=== PATIENT | female | born 1995 | race Caucasian/White ===

== ENCOUNTER 2016-06-29 18:51 | Emergency (ER) | payer MEDICAID | END 2016-06-29 22:30 | disposition left against medical advice (07) | LOC: ER 18:51 | DX: Z53.9 Procedure and treatment not carried out, unspecified reason (principal); K08.89 Other specified disorders of teeth and supporting structures ==

== ENCOUNTER 2016-12-03 15:10 | Emergency (ER) | payer MEDICAID ==
--- NOTE | 2016-12-03 16:04 | ER Document Report ---
ED Medical Screen (RME) - General Chief Complaint: Abdominal Pain Stated Complaint: STOMACH PAIN Time Seen by Provider: 12/03/16 16:01 Mode of Arrival: Ambulatory Information source: Patient Notes: 20 yo female c/o late menses (6-14) and Right pelvic pain. No home test. 2015. No vaginal discharge or dysuria. Nauseated and vomited at work the other night. Hx HPV, ovarian cyst, endometriosis, no pap smear ever. No fever. Hx misti tonsillectomy. Nl bm this am. TRAVEL OUTSIDE OF THE [place] IN LAST 30 DAYS: No - Related Data Allergies/Adverse Reactions: amoxicillin [Amoxicillin] Allergy (Verified 12/03/16 16:01) midazolam HCl [From Versed] Allergy (Verified 12/03/16 16:01) Past Medical History - Past Medical History Cardiac Medical History: Denies: Hx Coronary Artery Disease, Hx Heart Attack, Hx Hypertension Pulmonary Medical History: Reports: Hx Asthma, Hx Pneumonia - 07/31 - CXR Denies: Hx Bronchitis, Hx COPD Neurological Medical History: Reports: Hx Seizures - 03/01 - topamax . Denies: Hx Cerebrovascular Accident Renal/ Medical History: Denies: Hx Peritoneal Dialysis GI Medical History: Reports: Hx Gastroesophageal Reflux Disease, Hx Hiatal Hernia Musculoskeltal Medical History: Denies Hx Arthritis, Reports Hx Musculoskeletal Trauma Psychiatric Medical History: Reports: Hx Anxiety - panic attacks, Hx Bipolar Disorder, Hx Depression, Hx Post Traumatic Stress Disorder Past Surgical History: Reports: Hx Adenoidectomy, Hx Cholecystectomy, Hx Tonsillectomy - and adenoids. Denies: Hx Hysterectomy - Immunizations Hx Diphtheria, Pertussis, Tetanus Vaccination: Yes Physical Exam - Vital signs Vitals: Temp Pulse Resp BP Pulse Ox 98.3 F 107 H 18 105/65 96 12/03/16 15:33 12/03/16 15:33 12/03/16 15:33 12/03/16 15:33 12/03/16 15:33 Course - Vital Signs Vital signs: Temp Pulse Resp BP Pulse Ox 98.3 F 107 H 18 105/65 96 12/03/16 15:33 12/03/16 15:33 12/03/16 15:33 12/03/16 15:33 12/03/16 15:33
[2016-12-03 16:33] LABS: ABSOLUTE EOSINOPHILS # (AUTO) 0.2 10^3/uL (0.0-0.6); ABSOLUTE LYMPHOCYTES (AUTO) 2.2 10^3/uL (0.5-4.7); ABSOLUTE MONOCYTES (AUTO) 0.6 10^3/uL (0.1-1.4); ABSOLUTE NEUT (AUTO) 4.2 10^3/uL (1.7-8.2); BASOPHILS % (AUTO) 0.6 % (0-2); EOSINOPHILS % (AUTO) 2.2 % (0-6); HEMATOCRIT 44.4 % (36.0-47.0); HEMOGLOBIN 14.7 g/dL (12.0-15.5); HGB HCT DIFFERENCE -0.3; LYMPHOCYTES % (AUTO) 30.8 % (13-45); MEAN CORPUSCULAR HEMOGLOBIN 29.3 pg (27.0-33.4); MEAN CORPUSCULAR HGB CONC 33.2 g/dL (32.0-36.0); MEAN CORPUSCULAR VOLUME 88 fl (80-97); MONOCYTES % (AUTO) 8.7 % (3-13); RED BLOOD COUNT 5.03 10^6/uL (3.72-5.28); RED CELL DISTRIBUTION WIDTH 14.3 % (11.5-14.0); SEGMENTED NEUTROPHILS % (AUTO) 57.7 % (42-78); WHITE BLOOD COUNT 7.2 10^3/uL (4.0-10.5)
[2016-12-03 16:50] LABS: ALANINE AMINOTRANSFERASE 28 U/L (5-35); ALBUMIN 4.7 g/dL (3.7-5.6); ALKALINE PHOSPHATASE 52 U/L (50-135); ANION GAP 11 (5-19); ASPARTATE AMINO TRANSFERASE 19 U/L (5-30); BILIRUBIN,DIRECT 0.3 mg/dL (0.0-0.4); BILIRUBIN,TOTAL 0.6 mg/dL (0.2-1.3); BLOOD UREA NITROGEN 9 mg/dL (7-20); CALCIUM 9.7 mg/dL (8.4-10.2); CARBON DIOXIDE 25 mmol/L (22-30); CHLORIDE 105 mmol/L (98-107); CREATININE RESULT 0.69 mg/dL (0.52-1.25); GLUCOSE 82 mg/dL (75-110); SODIUM 140.9 mmol/L (137-145); TOTAL PROTEIN 7.3 g/dL (6.3-8.2)
[2016-12-03 16:54] LABS: APPEARANCE,URINE SLIGHTLY-CLOUDY; BILIRUBIN,URINE NEGATIVE (NEGATIVE); GLUCOSE, URINE NEGATIVE (NEGATIVE); KETONES,URINE NEGATIVE (NEGATIVE); LEUKOCYTE ESTERASE,URINE NEGATIVE (NEGATIVE); NITRITE,URINE NEGATIVE (NEGATIVE); PROTEIN,URINE NEGATIVE (NEGATIVE); URINE SPECIFIC GRAVITY 1.028; UROBILINOGEN,URINE NEGATIVE mg/dL (<2.0)
--- NOTE | 2016-12-03 19:06 | ER Document Report ---
ED General - General Chief Complaint: Abdominal Pain Stated Complaint: STOMACH PAIN Time Seen by Provider: 12/03/16 16:01 Mode of Arrival: Ambulatory Notes: Patient is a 20-year-old female with a history of recurrent abdominal pain and prior ovarian cysts who presents with several days of intermittent stabbing, sharp, moderate to severe pain to the right lower abdomen. Nothing improves or worsens her symptoms. States she has had a history of similar symptoms in the past but never to this degree of intensity. She has not seen her primary care doctor regarding today's concerns. She denies any vaginal bleeding, vaginal discharge or dysuria. No vomiting or constitutional symptoms. TRAVEL OUTSIDE OF THE [place] IN LAST 30 DAYS: No - Related Data Allergies/Adverse Reactions: amoxicillin [Amoxicillin] Allergy (Verified 12/03/16 16:01) midazolam HCl [From Versed] Allergy (Verified 12/03/16 16:01) Past Medical History - General Information source: Patient - Social History Smoking Status: Never Smoker Frequency of alcohol use: None Drug Abuse: None Lives with: Family Family History: Arthritis, DM, Hyperlipidemia Patient has suicidal ideation: No Patient has homicidal ideation: No - Past Medical History Cardiac Medical History: Denies: Hx Coronary Artery Disease, Hx Heart Attack, Hx Hypertension Pulmonary Medical History: Reports: Hx Asthma, Hx Pneumonia - 07/31 - CXR Denies: Hx Bronchitis, Hx COPD Neurological Medical History: Reports: Hx Seizures - 03/01 - topamax . Denies: Hx Cerebrovascular Accident Renal/ Medical History: Denies: Hx Peritoneal Dialysis GI Medical History: Reports: Hx Gastroesophageal Reflux Disease, Hx Hiatal Hernia Musculoskeltal Medical History: Denies Hx Arthritis, Reports Hx Musculoskeletal Trauma Psychiatric Medical History: Reports: Hx Anxiety - panic attacks, Hx Bipolar Disorder, Hx Depression, Hx Post Traumatic Stress Disorder Past Surgical History: Reports: Hx Adenoidectomy, Hx Cholecystectomy, Hx Tonsillectomy - and adenoids. Denies: Hx Hysterectomy - Immunizations Hx Diphtheria, Pertussis, Tetanus Vaccination: Yes Review of Systems - Review of Systems Notes: Constitutional: Negative for fever. HENT: Negative for sore throat. Eyes: Negative for visual changes. Cardiovascular: Negative for chest pain. Respiratory: Negative for shortness of breath. Gastrointestinal: Positive for right lower abdominal pain Genitourinary: Negative for dysuria. Musculoskeletal: Negative for back pain. Skin: Negative for rash. Neurological: Negative for headaches, weakness or numbness. 10 point ROS negative except as marked above and in HPI. Physical Exam - Vital signs Vitals: Temp Pulse Resp BP Pulse Ox 98.3 F 107 H 18 105/65 96 12/03/16 15:33 12/03/16 15:33 12/03/16 15:33 12/03/16 15:33 12/03/16 15:33 Interpretation: Tachycardic Notes: PHYSICAL EXAMINATION: GENERAL: Well-appearing, well-nourished and in no acute distress. HEAD: Atraumatic, normocephalic. EYES: Pupils equal round and reactive to light, extraocular movements intact, sclera anicteric, conjunctiva are normal. ENT: nares patent, oropharynx clear without exudates. Moist mucous membranes. NECK: Normal range of motion, supple without lymphadenopathy LUNGS: Breath sounds clear to auscultation bilaterally and equal. No wheezes rales or rhonchi. HEART: Regular rate and rhythm without murmurs ABDOMEN: Soft, right adnexal tenderness, no right lower quadrant tenderness. No rebound or guarding. EXTREMITIES: Normal range of motion, no pitting or edema. No cyanosis. NEUROLOGICAL: No focal neurological deficits. Moves all extremities spontaneously and on command. PSYCH: Normal mood, normal affect. SKIN: Warm, Dry, normal turgor, no rashes or lesions noted. Course - Re-evaluation Re-evalutation: 12/03/16 19:02 Patient presents with chronic intermittent abdominal pain that has been worse over the last several days in the right adnexa. Patient has mild tenderness on palpation of the right adnexa but absolutely no tenderness to the right lower quadrant. Her pain is an intermittent, stabbing pain in her clinical history is not at all consistent with an acute appendicitis nor are her labs, vitals or examination. Patient has had similar pains in the past related to an ovarian cyst and this seems to be the most probable cause pain today. I do not suspect an acute ovarian torsion given the lack of constant pain or any significant pain at time of my exam, and patient denies any vaginal discharge, fever, constitutional symptoms and has a normal white blood cell count making a tubo- ovarian abscess highly improbable. She has declined a transvaginal ultrasound which I think is appropriate given my low clinical suspicion for any diagnoses that would be altered by the use of this imaging modality. She is not . I have encouraged conservative management using NSAIDs and close outpatient follow-up. At this time will discharge with return precautions and follow-up recommendations. Verbal discharge instructions given a the bedside and opportunity for questions given. Medication warnings reviewed. Patient is in agreement with this plan and has verbalized understanding of return precautions and the need for primary care follow-up in the next 24-72 hours. - Vital Signs Vital signs: Temp Pulse Resp BP Pulse Ox 98.3 F 83 18 102/65 98 12/03/16 15:33 12/03/16 19:28 12/03/16 19:28 12/03/16 19:28 12/03/16 19:28 - Laboratory Result Diagrams: 12/03/16 16:20 12/03/16 16:20 Laboratory results interpreted by me: 12/03/16 16:20 RDW 14.3 H Discharge - Discharge Clinical Impression: Right lower quadrant abdominal pain Condition: Good Disposition: HOME, SELF-CARE Additional Instructions: You have been seen in the Emergency Department (ED) for abdominal pain. Your evaluation did not identify a clear cause of your symptoms but was generally reassuring. For your pain: Take ibuprofen 600 mg and acetaminophen 1000 mg every 6 hours together as needed for pain. Please follow up with your doctor as soon as possible regarding today's emergent visit and the symptoms that are bothering you. Return to the ED if your abdominal pain worsens or fails to improve, you develop bloody vomiting, bloody diarrhea, you are unable to tolerate fluids due to vomiting, fever greater than 101, or other symptoms that concern you. Referrals: EMERY LEONARDO MD [Primary Care Provider] - Follow up as needed
[2016-12-03] MEDS ORDERED: KETOROLAC TROMETHAMINE INJ/PF 30 MG/1 ML SDV IV ONE (19:07)
[2016-12-03 19:29] VITALS: BP 102/65
== END 2016-12-03 19:27 | disposition home or self-care (01) ==
LOC: ER 15:10
DX: R10.31 Right lower quadrant pain (principal)
CPT/HCPCS: 99284; 96374; 36415; 87086; 84702; 85025; 80053; 81001; J1885

== ENCOUNTER 2017-01-06 23:42 | Emergency (ER) | payer MEDICAID ==
[2017-01-07 00:15] LABS: ABSOLUTE EOSINOPHILS # (AUTO) 0.1 10^3/uL (0.0-0.6); ABSOLUTE LYMPHOCYTES (AUTO) 2.1 10^3/uL (0.5-4.7); ABSOLUTE MONOCYTES (AUTO) 0.4 10^3/uL (0.1-1.4); ABSOLUTE NEUT (AUTO) 3.2 10^3/uL (1.7-8.2); BASOPHILS % (AUTO) 0.8 % (0-2); EOSINOPHILS % (AUTO) 2.4 % (0-6); HEMATOCRIT 46.9 % (36.0-47.0); HEMOGLOBIN 15.7 g/dL (12.0-15.5); HGB HCT DIFFERENCE 0.2; LYMPHOCYTES % (AUTO) 36.1 % (13-45); MEAN CORPUSCULAR HEMOGLOBIN 30.3 pg (27.0-33.4); MEAN CORPUSCULAR HGB CONC 33.5 g/dL (32.0-36.0); MEAN CORPUSCULAR VOLUME 91 fl (80-97); MONOCYTES % (AUTO) 6.9 % (3-13); RED BLOOD COUNT 5.17 10^6/uL (3.72-5.28); RED CELL DISTRIBUTION WIDTH 15.6 % (11.5-14.0); SEGMENTED NEUTROPHILS % (AUTO) 53.8 % (42-78); WHITE BLOOD COUNT 5.9 10^3/uL (4.0-10.5)
[2017-01-07 00:30] LABS: APPEARANCE,URINE CLOUDY; BILIRUBIN,URINE NEGATIVE (NEGATIVE); GLUCOSE, URINE NEGATIVE (NEGATIVE); KETONES,URINE NEGATIVE (NEGATIVE); LEUKOCYTE ESTERASE,URINE NEGATIVE (NEGATIVE); NITRITE,URINE NEGATIVE (NEGATIVE); PROTEIN,URINE NEGATIVE (NEGATIVE); URINE SPECIFIC GRAVITY 1.011; UROBILINOGEN,URINE NEGATIVE mg/dL (<2.0)
--- NOTE | 2017-01-07 00:43 | ER Document Report ---
ED Psych Disorder / Suicide - General Chief Complaint: Suicidal Ideation Stated Complaint: PSYCH PROBLEM Time Seen by Provider: 01/07/17 00:28 TRAVEL OUTSIDE OF THE [place] IN LAST 30 DAYS: No - HPI Notes: 21-year-old female with prior history of anxiety and depression presents with reports of suicidal thought with a plan per [facility] paperwork. Also they report she has not been eating for 4 days and has had homicidal thoughts. Patient states she just contacted [facility] to talk with them as she has done in the past. She is denying suicidal thoughts. She states she has a job interview in the morning and is wanting to go to that appointment. She denies any physical complaints. Denies cough cold symptoms fever. She does smoke chronically and occasionally uses alcohol but denies using alcohol tonight. Only uses medications prescribed for her. She does admit to some hyperventilation type symptoms shortly before coming here. Denies any attempt at self-harm. - Related Data Allergies/Adverse Reactions: amoxicillin [Amoxicillin] Allergy (Verified 01/06/17 23:50) midazolam HCl [From Versed] Allergy (Verified 01/06/17 23:50) Past Medical History - Social History Smoking Status: Current Every Day Smoker Family History: Arthritis, DM, Hyperlipidemia Patient has suicidal ideation: Yes Patient has homicidal ideation: Yes - Past Medical History Cardiac Medical History: Denies: Hx Coronary Artery Disease, Hx Heart Attack, Hx Hypertension Pulmonary Medical History: Reports: Hx Asthma, Hx Pneumonia - 07/31 - CXR Denies: Hx Bronchitis, Hx COPD Neurological Medical History: Reports: Hx Seizures - 03/01 - topamax . Denies: Hx Cerebrovascular Accident Renal/ Medical History: Denies: Hx Peritoneal Dialysis GI Medical History: Reports: Hx Gastroesophageal Reflux Disease, Hx Hiatal Hernia Musculoskeltal Medical History: Denies Hx Arthritis, Reports Hx Musculoskeletal Trauma Psychiatric Medical History: Reports: Hx Anxiety - panic attacks, Hx Bipolar Disorder, Hx Depression, Hx Post Traumatic Stress Disorder Past Surgical History: Reports: Hx Adenoidectomy, Hx Cholecystectomy, Hx Tonsillectomy - and adenoids. Denies: Hx Hysterectomy - Immunizations Hx Diphtheria, Pertussis, Tetanus Vaccination: Yes Review of Systems - Review of Systems -: Yes All other systems reviewed and negative Physical Exam - Vital signs Vitals: Temp Pulse Resp BP Pulse Ox 98.4 F 79 20 125/77 99 01/06/17 23:50 01/06/17 23:50 01/06/17 23:50 01/06/17 23:50 01/06/17 23:50 Interpretation: Normal - Notes Notes: GENERAL: VS as per nursing doc. Well-appearing, thin female who is tearful HEAD: Atraumatic, normocephalic EYES: Pupils equal round and reactive to light, extraocular movements intact, sclera anicteric, no conjunctival injection or discharge. ENT: Nares patent, oropharynx clear without exudates, moist mucous membranes. NECK: Normal range of motion, supple without lymphadenopathy. LUNGS: Breath sounds clear to auscultation bilaterally but are coarse and equal. No wheezes rales or rhonchi. HEART: Regular rate and rhythm without murmurs. Peripheral pulses equal. ABDOMEN: Soft, non-tender. BACK: Normal to inspection EXTREMITIES: Normal appearance without edema. NEUROLOGICAL: Cranial nerves grossly intact. Normal speech. Normal sensory and motor exams. No gross cerebellar abnormalities. PSYCH: Oriented 3. Anxious, directable. No evidence of hallucinations or delusions. No reported suicidal or homicidal ideation though [facility] management notes otherwise. Normal thought content. Speech is slightly pressured. SKIN: Warm, dry. No lacerations. Course - Re-evaluation Re-evalutation: 01/07/17 00:42 It appears the patient is having some significant stressors of unclear origin. She will require further psychiatric evaluation with her reports of suicidal thought with plan as well as homicidal ideation to [facility]. She has been inconsistent with me regarding what she told [facility]. 01/07/17 02:51 - Vital Signs Vital signs: Temp Pulse Resp BP Pulse Ox 98.4 F 79 20 125/77 99 01/06/17 23:50 01/06/17 23:50 01/06/17 23:50 01/06/17 23:50 01/06/17 23:50 - Laboratory Result Diagrams: 01/06/17 23:59 01/06/17 23:59 Laboratory results interpreted by me: 01/06/17 01/06/17 23:59 23:59 Hgb 15.7 H RDW 15.6 H Salicylates < 1.0 L Acetaminophen < 10 L
[2017-01-07 00:44] LABS: ALANINE AMINOTRANSFERASE 25 U/L (9-52); ALCOHOL < 10 mg/dL (NONE DETECTED); ALKALINE PHOSPHATASE 50 U/L (38-126); ANION GAP 11 (5-19); ASPARTATE AMINO TRANSFERASE 18 U/L (14-36); BILIRUBIN,DIRECT 0.4 mg/dL (0.0-0.4); BILIRUBIN,TOTAL 0.5 mg/dL (0.2-1.3); BLOOD UREA NITROGEN 8 mg/dL (7-20); CALCIUM 10.2 mg/dL (8.4-10.2); CARBON DIOXIDE 26 mmol/L (22-30); CHLORIDE 103 mmol/L (98-107); CREATININE RESULT 0.61 mg/dL (0.52-1.25); GLUCOSE 87 mg/dL (75-110); MAGNESIUM 2.1 mg/dL (1.6-2.3); SODIUM 139.6 mmol/L (137-145); TOTAL PROTEIN 7.4 g/dL (6.3-8.2)
[2017-01-07 00:51] LABS: URINE BARBITURATES SCREEN NEGATIVE; URINE METHADONE SCREEN NEGATIVE; URINE OPIATES LOW NEGATIVE; URINE PHENCYCLIDINE SCREEN NEGATIVE
[2017-01-07] MEDS ORDERED: LORAZEPAM 1 MG TABLET PO PRN (03:43)
--- NOTE | 2017-01-07 09:10 | ER Document Report ---
Doctor's Note Notes: 01/07/17 09:10 Patient is resting comfortably in the bed talking with her significant other. She is cheerful and pleasant. She denies any complaints or concerns at this time. She is currently awaiting disposition.
--- NOTE | 2017-01-07 10:24 | EKG REPORT ---
SEVERITY:- NORMAL ECG - SINUS RHYTHM : Confirmed by: Mary Carmen Dennis 07-Jan-2017 10:22:52
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
[2017-01-07 11:11] VITALS: BP 96/54
== END 2017-01-07 11:15 | disposition home or self-care (01) ==
LOC: ER 23:42
DX: F31.9 Bipolar disorder, unspecified (principal); F17.200 Nicotine dependence, unspecified, uncomplicated; Z88.0 Allergy status to penicillin; Z88.4 Allergy status to anesthetic agent
CPT/HCPCS: 36415; 80053; 80307; 81001; 83735; 84703; 85025; 93005; 93010; 99285

== ENCOUNTER 2017-04-26 01:42 | Emergency (ER) | payer MEDICAID, OTHER ==
[2017-04-26] MEDS ORDERED: ONDANSETRON HCL INJ/PF 4 MG/2 ML SDV IV ONE (02:23)
[2017-04-26] MEDS ORDERED: FAMOTIDINE INJ/PF 20 MG/2 ML SDV IV ONE (02:23)
[2017-04-26] MEDS ORDERED: NORMAL SALINE 1000 ML 1,000 ML IV ONE (02:23)
--- NOTE | 2017-04-26 02:29 | ER Document Report ---
ED General - General Chief Complaint: Nausea/Vomiting/Diarrhea Stated Complaint: VOMITING Time Seen by Provider: 04/26/17 02:09 Mode of Arrival: Ambulatory Information source: Patient, Friend TRAVEL OUTSIDE OF THE [place] IN LAST 30 DAYS: No - HPI Notes: Patient is a 21-year-old who is currently 7 weeks from last menstrual period presents to the emergency department with report 3 week history of progressive right lower quadrant pain and now has nausea and vomiting without hematemesis. The patient also reports 2 loose bowel movements earlier today without any obvious blood. The patient denies any vaginal bleeding or discharge. The patient reports no back pain. She reports no fever or chills. She did not have this amount of nausea and vomiting with a previous . Patient reports no exposures to anyone else who is been sick. The patient does admit to feeling somewhat lightheaded when she stands up. The patient has not yet had a pelvic ultrasound regarding this . - Related Data Allergies/Adverse Reactions: amoxicillin [Amoxicillin] Allergy (Verified 04/26/17 01:52) midazolam HCl [From Versed] Allergy (Verified 04/26/17 01:52) Past Medical History - General Information source: Patient - Social History Smoking Status: Current Every Day Smoker Frequency of alcohol use: None Drug Abuse: None Lives with: Alone Family History: Arthritis, DM, Hyperlipidemia Patient has suicidal ideation: No Patient has homicidal ideation: No - Past Medical History Cardiac Medical History: Denies: Hx Coronary Artery Disease, Hx Heart Attack, Hx Hypertension Pulmonary Medical History: Reports: Hx Asthma, Hx Pneumonia - 07/31 - CXR Denies: Hx Bronchitis, Hx COPD Neurological Medical History: Reports: Hx Seizures - 03/01 - topamax . Denies: Hx Cerebrovascular Accident Renal/ Medical History: Denies: Hx Peritoneal Dialysis GI Medical History: Reports: Hx Gastroesophageal Reflux Disease, Hx Hiatal Hernia Musculoskeltal Medical History: Denies Hx Arthritis, Reports Hx Musculoskeletal Trauma Psychiatric Medical History: Reports: Hx Anxiety - panic attacks, Hx Bipolar Disorder, Hx Depression, Hx Post Traumatic Stress Disorder Past Surgical History: Reports: Hx Adenoidectomy, Hx Cholecystectomy, Hx Tonsillectomy - and adenoids. Denies: Hx Hysterectomy - Immunizations Hx Diphtheria, Pertussis, Tetanus Vaccination: Yes Review of Systems - Review of Systems Notes: REVIEW OF SYSTEMS: CONSTITUTIONAL : Denies fever, chills, or sweats. EENT: Denies eye, ear, throat, or mouth pain or symptoms. Denies nasal or sinus congestion or discharge. Denies throat, tongue, or mouth swelling or difficulty swallowing. CARDIOVASCULAR: Denies chest pain. Denies palpitations or racing or irregular heart beat. Denies ankle edema. RESPIRATORY: Denies cough, cold, or chest congestion. Denies shortness of breath, difficulty breathing, or wheezing. GASTROINTESTINAL: Denies abdominal pain or distention. Denies blood in vomitus , stools, or per rectum. Denies black, tarry stools. Denies constipation. GENITOURINARY: Denies difficulty urinating, painful urination, burning, frequency, blood in urine, or discharge. FEMALE GENITOURINARY: Denies vaginal bleeding, heavy or abnormal periods, irregular periods. Denies vaginal discharge or odor. MUSCULOSKELETAL: Denies back or neck pain or stiffness. Denies joint pain or swelling. SKIN: Denies rash, lesions or sores. HEMATOLOGIC : Denies easy bruising or bleeding. LYMPHATIC: Denies swollen, enlarged glands. NEUROLOGICAL: Denies confusion or altered mental status. Denies passing out or loss of consciousness. Denies dizziness or lightheadedness. Denies headache. Denies weakness or paralysis or loss of use of either side. Denies problems with gait or speech. Denies sensory loss, numbness, or tingling. Denies seizures. PSYCHIATRIC: Denies anxiety or stress. Denies depression, suicidal ideation, or homicidal ideation. ALL OTHER SYSTEMS REVIEWED AND NEGATIVE. Dictation was performed using [employer] voice recognition software Physical Exam - Vital signs Vitals: Temp Pulse Resp BP Pulse Ox 98.5 F 83 16 109/66 97 04/26/17 01:52 04/26/17 01:52 04/26/17 01:52 04/26/17 01:52 04/26/17 01:52 - Notes Notes: PHYSICAL EXAMINATION: GENERAL: Moderate discomfort with nausea. HEAD: Atraumatic, normocephalic. EYES: Pupils equal round and reactive to light, extraocular movements intact, conjunctiva are normal. ENT: Nares patent, oropharynx clear without exudates. Dry thin mucous membranes. NECK: Normal range of motion, supple without lymphadenopathy LUNGS: Breath sounds clear to auscultation bilaterally and equal. No wheezes rales or rhonchi. HEART: Regular rate and rhythm without murmurs ABDOMEN: Soft, thin, nondistended abdomen. No guarding, no rebound. No masses appreciated. Tender through the right lower quadrant region. No rebound or guarding. Female : deferred Musculoskeletal: Normal range of motion, no pitting or edema. No cyanosis. No CVA tenderness. NEUROLOGICAL: Cranial nerves grossly intact. Normal speech, normal gait. Normal sensory, motor exams PSYCH: Normal mood, normal affect. SKIN: Warm, Dry, normal turgor, no rashes or lesions noted. Course - Re-evaluation Re-evalutation: 04/26/17 02:28 Patient was given normal saline bolus and Zofran and Pepcid. Patient was counseled at length about the need to quit smoking regarding the . 04/26/17 03:20 Patient had improvement in her nausea after Zofran and Pepcid. - Vital Signs Vital signs: Temp Pulse Resp BP Pulse Ox 98.5 F 83 16 109/66 97 04/26/17 01:52 04/26/17 01:52 04/26/17 01:52 04/26/17 01:52 04/26/17 01:52 - Laboratory Result Diagrams: 04/26/17 03:08 04/26/17 03:08 Laboratory results interpreted by me: 04/26/17 04/26/17 03:08 03:08 RDW 14.5 H Urine Protein 30 H Urine Ketones 80 H Urine Urobilinogen 2.0 H Urine Ascorbic Acid 40 H Discharge - Discharge Clinical Impression: Vomiting and diarrhea, Tobacco abuse, Abdominal pain affecting , Hyperemesis gravidarum, Dehydration Instructions: Stop Smoking ([facility]), Hyperemesis Gravidarum ([facility]) Prescriptions: Ondansetron [Zofran Odt 4 mg Tablet] 1 tab PO Q8HP PRN #15 tab.rapdis PRN Reason: For Nausea/Vomiting Famotidine [Pepcid 20 mg Tablet] 20 mg PO BID #60 tablet
[2017-04-26 03:25] LABS: APPEARANCE,URINE SLIGHTLY HAZY; BILIRUBIN,URINE NEGATIVE (NEGATIVE); GLUCOSE, URINE NEGATIVE (NEGATIVE); KETONES,URINE 80 mg/dL (NEGATIVE); LEUKOCYTE ESTERASE,URINE NEGATIVE (NEGATIVE); NITRITE,URINE NEGATIVE (NEGATIVE); PROTEIN,URINE 30 mg/dL (NEGATIVE); URINE SPECIFIC GRAVITY 1.029
[2017-04-26 03:27] LABS: ABSOLUTE EOSINOPHILS # (AUTO) 0.1 10^3/uL (0.0-0.6); ABSOLUTE LYMPHOCYTES (AUTO) 1.9 10^3/uL (0.5-4.7); ABSOLUTE MONOCYTES (AUTO) 0.5 10^3/uL (0.1-1.4); ABSOLUTE NEUT (AUTO) 4.6 10^3/uL (1.7-8.2); BASOPHILS % (AUTO) 0.3 % (0-2); EOSINOPHILS % (AUTO) 1.4 % (0-6); HEMATOCRIT 40.9 % (36.0-47.0); HEMOGLOBIN 14.2 g/dL (12.0-15.5); HGB HCT DIFFERENCE 1.7; MEAN CORPUSCULAR HEMOGLOBIN 31.1 pg (27.0-33.4); MEAN CORPUSCULAR HGB CONC 34.8 g/dL (32.0-36.0); MEAN CORPUSCULAR VOLUME 89 fl (80-97); MONOCYTES % (AUTO) 7.3 % (3-13); RED BLOOD COUNT 4.58 10^6/uL (3.72-5.28); RED CELL DISTRIBUTION WIDTH 14.5 % (11.5-14.0); WHITE BLOOD COUNT 7.1 10^3/uL (4.0-10.5)
[2017-04-26 03:44] LABS: ALANINE AMINOTRANSFERASE 32 U/L (9-52); ALBUMIN 4.5 g/dL (3.5-5.0); ALKALINE PHOSPHATASE 55 U/L (38-126); ANION GAP 18 (5-19); ASPARTATE AMINO TRANSFERASE 22 U/L (14-36); BILIRUBIN,DIRECT 0.3 mg/dL (0.0-0.4); BILIRUBIN,TOTAL 0.7 mg/dL (0.2-1.3); BLOOD UREA NITROGEN 6 mg/dL (7-20); CALCIUM 9.6 mg/dL (8.4-10.2); CARBON DIOXIDE 17 mmol/L (22-30); CHLORIDE 104 mmol/L (98-107); CREATININE RESULT 0.36 mg/dL (0.52-1.25); GLUCOSE 79 mg/dL (75-110); POTASSIUM 3.7 mmol/L (3.6-5.0); SODIUM 139.2 mmol/L (137-145); TOTAL PROTEIN 6.9 g/dL (6.3-8.2)
[2017-04-26] MEDS ORDERED: POTASSI CL 20 MEQ/D5LR 1L 20 MEQ/1,000 ML RTUINJ IV ONE (03:50)
--- NOTE | 2017-04-26 06:00 | ER Document Report ---
Doctor's Note Notes: 04/26/17 05:59 Patient's ultrasound shows an IUP with a heart rate in the 170s. Measures 9 weeks 1 day. Did reevaluate the patient she says that she feels very well. She is receiving the D5 IV fluids it was ordered by Dr. Elliott. He is no longer nauseous and is on pain. Informed the nurse and when she receives 500 mL's of the D5 fluids that she will be safe to be discharged home. Patient says he feels very good and agrees with plan for discharge home. I encouraged her return to ER immediately if she has intractable vomiting, fevers, or worsening abdominal pain or vaginal bleeding. Patient has discharge instructions and prescriptions already written by Dr. Elliott.
--- NOTE | 2017-04-26 06:14 | RADIOLOGY REPORT (SQ) ---
EXAM DESCRIPTION: U/S 1TRIMESTER/1GEST W/DOPPLER CLINICAL HISTORY: 21 years, Female, with RLQ pain COMPARISON: None. TECHNIQUE: Transvaginal. LIMITATIONS: None. FINDINGS: Intrauterine living fetus measures 2.5 cm in crown-rump length corresponding with a gestational age of nine weeks and one day with TALHA of 11/28/2017. Cardiac activity is 178 bpm. 3.7 cm right ovary, 4.2 cm left ovary, 2.7 cm likely left corpus luteal cyst, 3.4 cm cervical length appear otherwise unremarkable. No significant free fluid. IMPRESSION: Sonographically viable intrauterine 9w 1d gestation. 2010 [employer]- All Rights Reserved
[2017-04-26 06:58] VITALS: BP 122/75
== END 2017-04-26 06:57 | disposition home or self-care (01) ==
LOC: ER 01:42
DX: O26.91 Pregnancy related conditions, unspecified, first trimester (principal); O21.0 Mild hyperemesis gravidarum; R19.7 Diarrhea, unspecified; R10.9 Unspecified abdominal pain; O99.331 Smoking (tobacco) complicating pregnancy, first trimester; Z88.0 Allergy status to penicillin; Z3A.01 Less than 8 weeks gestation of pregnancy
CPT/HCPCS: 99284; 96361; 96375; 96365; 96366; 36415; 84702; 85025; 80053; 81001; 76801; 93976; J3480; J2405; J7030; S0028

== ENCOUNTER → 2017-06-09 | Outpatient (CLI) | payer SELFPAY ==
--- NOTE | 2017-06-09 15:30 | RADIOLOGY REPORT (SQ) ---
EXAM DESCRIPTION: U/S OB 14+ TRNABD 1GES W/O DOP COMPLETED DATE/TIME: 06/09/2017 2:48 pm REASON FOR STUDY: ENCOUNTER FOR SUPERVISION OF OTHER NORMAL Z34.81 ENCOUNTER FOR SUPRVSN OF NORMAL , FIRST TRIM COMPARISON: None. TECHNIQUE: Static and Dynamic grayscale imaging performed of gravid uterus using transabdominal appr oach. Additional selected color Doppler and spectral images recorded. All stored on PACS. LIMITATIONS: None. FINDINGS: EGA: 15 weeks 5 days TALHA: 11/26/2017 PLACENTA: Anterior grade 1 PRESENTATION: Variable ANATOMY: HEART RATE: 173 beats per minute. FOUR CHAMBER HEART: Not visualized THREE VESSEL CORD: Not visualized CORD INSERTION: Not visualized KIDNEYS AND BLADDER: Not visualized STOMACH: Visualized. Appears normal. SPINE: Not visualized BRAIN AND LATERAL VENTRICLES: Not visualized OTHER: No other significant finding. MATERNAL ADNEXA: Maternal ovaries not visualized. CERVICAL LENGTH: 4.1 cm Closed. OTHER: No other significant finding. IMPRESSION: LIVING INTRAUTERINE . ESTIMATED GESTATIONAL AGE 15 weeks 5 days There was limited visualization of the anatomy. Trimester of : Second trimester - 13 weeks 1 day to 27 weeks 6 days. TECHNICAL DOCUMENTATION: JOB ID: [id number] [employer]- All Rights Reserved
== END ==
LOC: RAD 13:44
PROVIDERS: ATTEND Nurse Practitioner Women's Health
DX: Z34.82 Encounter for supervision of other normal pregnancy, second trimester (principal)
CPT/HCPCS: 76805

== ENCOUNTER 2017-07-09 21:02 | Emergency (ER) | payer MEDICAID ==
--- NOTE | 2017-07-09 22:19 | ER Document Report ---
ED GI/ - General Mode of Arrival: Ambulatory Information source: Patient TRAVEL OUTSIDE OF THE [place] IN LAST 30 DAYS: No <YRIS ELDER - Last Filed: 07/09/17 22:42> <IBETH PABON - Last Filed: 07/10/17 03:13> - General Chief Complaint: OB Problem (>20wk) Stated Complaint: Time Seen by Provider: 07/09/17 22:00 Notes: Patient is a 21 year old female that presents to the emergency department today with complaints of headache and lower abdominal pressure. Patient is 20 weeks , . Patient states she took Tylenol this morning for her headache with minimal relief. Patient denies any vaginal bleeding, dysuria, nausea, or vomiting. (YRIS ELDER) - Related Data Allergies/Adverse Reactions: amoxicillin [Amoxicillin] Allergy (Verified 04/26/17 01:52) midazolam HCl [From Versed] Allergy (Verified 04/26/17 01:52) Past Medical History - General Information source: Patient - Social History Smoking Status: Never Smoker Cigarette use (# per day): No Frequency of alcohol use: None Drug Abuse: None Lives with: Family Family History: Arthritis, DM, Hyperlipidemia Pulmonary Medical History: Reports: Hx Asthma, Hx Pneumonia - 07/31 - CXR Neurological Medical History: Reports: Hx Seizures - 03/01 - topamax GI Medical History: Reports: Hx Gastroesophageal Reflux Disease, Hx Hiatal Hernia Musculoskeltal Medical History: Reports Hx Musculoskeletal Trauma Psychiatric Medical History: Reports: Hx Anxiety - panic attacks, Hx Bipolar Disorder, Hx Depression, Hx Post Traumatic Stress Disorder Past Surgical History: Reports: Hx Adenoidectomy, Hx Cholecystectomy, Hx Tonsillectomy - and adenoids - Immunizations Hx Diphtheria, Pertussis, Tetanus Vaccination: Yes <YRIS ELDER - Last Filed: 07/09/17 22:42> Review of Systems - Review of Systems Constitutional: No symptoms reported EENT: No symptoms reported Cardiovascular: No symptoms reported Respiratory: No symptoms reported Gastrointestinal: See HPI, Abdominal pain - lower abdominal "pressure". denies : Nausea, Vomiting Genitourinary: denies: Dysuria Female Genitourinary: See HPI, . denies: Vaginal bleeding Musculoskeletal: No symptoms reported Skin: No symptoms reported Hematologic/Lymphatic: No symptoms reported Neurological/Psychological: See HPI, Headaches -: Yes All other systems reviewed and negative <YRIS ELDER - Last Filed: 07/09/17 22:42> Physical Exam <YRIS ELDER - Last Filed: 07/09/17 22:42> <IBETH PABON - Last Filed: 07/10/17 03:13> - Vital signs Vitals: Temp Pulse Resp BP Pulse Ox 98.7 F 95 20 111/62 96 07/09/17 21:30 07/09/17 21:30 07/09/17 21:30 07/09/17 21:30 07/09/17 21:30 - Notes Notes: Physical Exam: General: Alert, appears well. HEENT: Normocephalic. Atraumatic. PERRL. Extraocular movements intact. Oropharynx clear. Neck: Supple. Non-tender. Respiratory: No respiratory distress. Clear and equal breath sounds bilaterally. Cardiovascular: Regular rate and rhythm. Abdominal: Gravid uterus. Non-tender. No distension. Normal Bowel Sounds. Back: Non-tender. No deformity or step off. Extremities: Moves all four extremities. Upper extremities: Normal inspection. Normal ROM. Lower extremities: Normal inspection. No edema. Normal ROM. Neurological: Normal cognition. AAOx4. Normal speech. Psychological: Normal affect. Normal Mood. Skin: Warm. Dry. Normal color. (YRIS ELDER) Course <YRIS ELDER - Last Filed: 07/09/17 22:42> - Laboratory Result Diagrams: 07/09/17 23:45 07/09/17 23:45 <IBETH PABON - Last Filed: 07/10/17 03:13> - Re-evaluation Re-evalutation: 07/10/17 03:12 The patient presents with nausea without signs of peritonitis or other life- threatening or serious etiology. The patient appears stable for discharge and has been instructed to return immediately if the symptoms worsen in any way, or in 8-12hr if not improved for re-evaluation. The patient has been instructed to return if the symptoms worsen or change in any way. The patient presents with headache without signs of AUTOMATIC BLOCKER bleed, stroke, infection, or other serious etiology. The patient is neurologically intact. Given the extremely low risk of these diagnoses further testing and evaluation for these possibilities does not appear to be indicated at this time. The patient has been instructed to return if the symptoms worsen or change in any way.. (IBETH PABON) - Vital Signs Vital signs: Temp Pulse Resp BP Pulse Ox 98.3 F 82 16 91/62 L 100 07/10/17 01:17 07/10/17 01:17 07/10/17 01:17 07/10/17 01:17 07/10/17 01:17 - Laboratory Laboratory results interpreted by me: 07/09/17 07/09/17 07/09/17 21:30 23:45 23:45 Hct 35.0 L RDW 14.2 H Potassium 3.4 L Creatinine 0.35 L Beta HCG, Quant 42364.00 H Urine Blood SMALL H Ur Leukocyte Esterase SMALL H Discharge <YRIS ELDER - Last Filed: 07/09/17 22:42> <IBETH PABON - Last Filed: 07/10/17 03:13> - Discharge Condition: Good Disposition: HOME, SELF-CARE Instructions: Headache ([facility]), Nitrofurantoin ([facility]), ([facility]), Urinary Tract Infection ([facility]) Additional Instructions: For nausea and vomiting during I recomment: Start with 10-12.5 mg of pyridoxine (vitamin B6) three times a day for 2 days. If not fully effective, Increase to 12.5 mg of pyridoxine four times a day for 2 days. If not fully effective, Increase to 25 mg of pyridoxine three times a day for 2 days. If not fully effective, Continue 25 mg pyridoxine 3 times a day, and add 12.5 mg of doxylamine before bedtime each day for 2 days. If not fully effective, Continue 25 mg pyridoxine 3 times a day, and take 12.5 mg of doxylamine twice a day. If not fully effective, Continue 25 mg pyridoxine 3 times a day, and take 12.5 mg of doxylamine three times a day. If not fully effective, Continue 25 mg pyridoxine 3 times a day, and 12.5 mg of doxylamine 3 times a day , while adding Emetrol, one to two tablespoons (15-30 cc) taken once or twice a day as needed. (Emetrol is an [id number] mixture of sugar syrups and phosphoric acid [phosphorylated carbohydrate solution]) that acts by soothing the actual wall of the gastrointestinal tract). If not fully effective, Consult with your doctor. Your urinalysis does show signs bacteria we will treat this with Macrobid for the next 5 days. Please make sure you take medications as prescribed return to the ER if symptoms worsen. Follow-up with your TUCK POINTER. Prescriptions: Metoclopramide HCl [Reglan] 5 mg PO Q6 #30 tablet Nitrofurantoin/Nitrofuran Mac [Macrobid 100 mg Capsule] 1 tab PO BID #10 capsule Referrals: AGUS JACKSON MD [Primary Care Provider] - Follow up in 3-5 days Scribe Documentation - Scribe Written by Florina:: Florina Burris, 07/09/2017 [id number] acting as scribe for :: Cahrles <YRIS ELDER - Last Filed: 07/09/17 22:42>
[2017-07-09] MEDS ORDERED: DIPHENHYDRAMINE HCL 50 MG/ML VIAL IV ONE (22:20)
[2017-07-09] MEDS ORDERED: METOCLOPRAMIDE HCL INJ/PF 10 MG/2 ML SDV IV ONE (22:20)
[2017-07-09 22:26] LABS: APPEARANCE,URINE SLIGHTLY-CLOUDY; BILIRUBIN,URINE NEGATIVE (NEGATIVE); COLOR,URINE YELLOW; GLUCOSE, URINE NEGATIVE (NEGATIVE); KETONES,URINE NEGATIVE (NEGATIVE); LEUKOCYTE ESTERASE,URINE SMALL (NEGATIVE); NITRITE,URINE NEGATIVE (NEGATIVE); PROTEIN,URINE NEGATIVE (NEGATIVE); URINE SPECIFIC GRAVITY 1.014; UROBILINOGEN,URINE NEGATIVE mg/dL (<2.0)
[2017-07-09] MEDS: NORMAL SALINE 1000 ML 1,000 ML IV PRN (23:33)
[2017-07-09 23:53] LABS: ABSOLUTE EOSINOPHILS # (AUTO) 0.1 10^3/uL (0.0-0.6); ABSOLUTE LYMPHOCYTES (AUTO) 2.1 10^3/uL (0.5-4.7); ABSOLUTE MONOCYTES (AUTO) 0.5 10^3/uL (0.1-1.4); ABSOLUTE NEUT (AUTO) 6.4 10^3/uL (1.7-8.2); BASOPHILS % (AUTO) 0.5 % (0-2); EOSINOPHILS % (AUTO) 1.6 % (0-6); HEMOGLOBIN 12.2 g/dL (12.0-15.5); LYMPHOCYTES % (AUTO) 22.6 % (13-45); MEAN CORPUSCULAR HEMOGLOBIN 31.7 pg (27.0-33.4); MEAN CORPUSCULAR VOLUME 91 fl (80-97); MONOCYTES % (AUTO) 5.5 % (3-13); PLATELET COUNT 178 10^3/uL (150-450); RED BLOOD COUNT 3.86 10^6/uL (3.72-5.28); RED CELL DISTRIBUTION WIDTH 14.2 % (11.5-14.0); SEGMENTED NEUTROPHILS % (AUTO) 69.8 % (42-78); TOTAL CELLS COUNTED % (AUTO) 100 %; WHITE BLOOD COUNT 9.2 10^3/uL (4.0-10.5)
[2017-07-09] MEDS ORDERED: NITROFURANTOIN MONOHYD/M-CRYST 100 MG CAPSULE PO ONE (23:58)
[2017-07-10 00:09] LABS: ANION GAP 8 (5-19); BLOOD UREA NITROGEN 7 mg/dL (7-20); CALCIUM 9.5 mg/dL (8.4-10.2); CARBON DIOXIDE 22 mmol/L (22-30); CHLORIDE 107 mmol/L (98-107); GLUCOSE 88 mg/dL (75-110); POTASSIUM 3.4 mmol/L (3.6-5.0); SODIUM 137.1 mmol/L (137-145)
[2017-07-10] MEDS: NORMAL SALINE 1000 ML 1,000 ML IV PRN (00:55)
[2017-07-10 01:19] VITALS: BP 91/62
== END 2017-07-10 01:20 | disposition home or self-care (01) ==
LOC: ER 21:02
DX: O23.42 Unspecified infection of urinary tract in pregnancy, second trimester (principal); O26.92 Pregnancy related conditions, unspecified, second trimester; R51 Headache; Z3A.20 20 weeks gestation of pregnancy; Z88.0 Allergy status to penicillin; Z90.49 Acquired absence of other specified parts of digestive tract
CPT/HCPCS: 99284; 96361; 96374; 96375; 36415; 87086; 84702; 85025; 80048; 81001; J1200; J2765; J7030; J3490; J8499

== ENCOUNTER 2017-07-17 00:44 | Emergency (ER) | payer MEDICAID ==
[2017-07-17] MEDS ORDERED: NORMAL SALINE 1000 ML 1,000 ML IV ONE (01:44)
--- NOTE | 2017-07-17 01:48 | ER Document Report ---
ED General - General Chief Complaint: Palpitations Stated Complaint: WEAKNESS Time Seen by Provider: 07/17/17 01:17 TRAVEL OUTSIDE OF THE [place] IN LAST 30 DAYS: No - HPI Notes: Patient is a 21-year-old female approximately 21 weeks who presents to the ED complaining of feeling her heart racing 1 day. Patient states that she still eating and drinking without difficulties. She is urinating normally having normal bowel movements. She has not had any vaginal discharge, odor, or bleeding. Patient states that she did have a recent urinary infection which she has since completed treatment. Patient states that she had one episode in the past and was told that she had low potassium. She denies any smoking, IV drug use, alcohol involvement. She denies any other significant past medical history. Patient states that she has otherwise been feeling well without any other recent illness. Denies any headache, fever, neck pain, changes in vision/speech/mentation/hearing, URI, sore throat, chest pain, syncope, cough, shortness of breath, wheeze, dyspnea, abdominal pain, nausea/vomiting/diarrhea, urinary retention, dysuria, hematuria, or rash. - Related Data Allergies/Adverse Reactions: amoxicillin [Amoxicillin] Allergy (Verified 04/26/17 01:52) midazolam HCl [From Versed] Allergy (Verified 04/26/17 01:52) Past Medical History - Social History Smoking Status: Never Smoker Family History: Arthritis, DM, Hyperlipidemia - Past Medical History Cardiac Medical History: Denies: Hx Coronary Artery Disease, Hx Heart Attack, Hx Hypertension Pulmonary Medical History: Reports: Hx Asthma, Hx Pneumonia - 07/31 - CXR Denies: Hx Bronchitis, Hx COPD Neurological Medical History: Reports: Hx Seizures - 03/01 - topamax . Denies: Hx Cerebrovascular Accident Renal/ Medical History: Denies: Hx Peritoneal Dialysis GI Medical History: Reports: Hx Gastroesophageal Reflux Disease, Hx Hiatal Hernia Musculoskeltal Medical History: Denies Hx Arthritis, Reports Hx Musculoskeletal Trauma Psychiatric Medical History: Reports: Hx Anxiety - panic attacks, Hx Bipolar Disorder, Hx Depression, Hx Post Traumatic Stress Disorder Past Surgical History: Reports: Hx Adenoidectomy, Hx Cholecystectomy, Hx Tonsillectomy - and adenoids. Denies: Hx Hysterectomy - Immunizations Hx Diphtheria, Pertussis, Tetanus Vaccination: Yes Review of Systems - Review of Systems -: Yes All other systems reviewed and negative Physical Exam - Vital signs Vitals: Temp Pulse Resp BP Pulse Ox 97.9 F 98 16 109/62 97 07/17/17 00:50 07/17/17 00:50 07/17/17 00:50 07/17/17 00:50 07/17/17 00:50 - Notes Notes: PHYSICAL EXAMINATION: GENERAL: Well-appearing, well-nourished and in no acute distress. A&Ox4. Answers questions appropriately. Vitals: HR 84 during my exam. HEAD: Atraumatic, normocephalic. EYES: Pupils equal round and reactive to light, extraocular movements intact, sclera anicteric, conjunctiva are normal. ENT: Nares patent and without discharge. oropharynx clear without exudates. No tonsilar hypertrophy or erythema. Moist mucous membranes. NECK: Normal range of motion, supple without lymphadenopathy LUNGS: Breath sounds clear to auscultation bilaterally and equal. No wheezes rales or rhonchi. No retractions or tachypneia HEART: Regular rate and rhythm without murmurs, rubs, gallops. ABDOMEN: Soft, nontender, nondistended abdomen. No guarding, no rebound. No masses appreciated. Normal bowel sounds present. No CVA tenderness bilaterally. Musculoskeletal: FROM to passive/active. Strength 5+/5. Sebastian neg b/l. No calf erythema/swelling. Extremities: No cyanosis, clubbing, or edema b/l. Peripheral pulses 2+. Capillary refill less than 3 seconds. NEUROLOGICAL: Normal speech, normal gait. Normal sensory, motor exams PSYCH: Normal mood, normal affect. SKIN: Warm, Dry, normal turgor, no rashes or lesions noted. Course - Re-evaluation Re-evalutation: 07/17/17 03:49 Patient is an afebrile, well-hydrated, 21-year-old female who presents to the ED with sensation of palpitations prior to arrival without recurrence while in the emergency department. Vitals are stable. PE is otherwise unremarkable. Patient has not been tachycardic throughout her stay in the emergency department with a current heart rate of 72. CBC, CMP, thyroid panel, urinalysis , EKG, heart tones were unremarkable for any acute pathology. Patient was given 1 L normal saline. Low suspicion for any severe dehydration, sepsis, infection, shock, or other systemic emergent condition at this time. Patient to monitor symptoms closely and seek medical attention with any acute changes. Recheck with your INJECTION MOLDING ENGINEER/PCM in 3-5 days. Return to the ED with any worsening/ concerning symptoms otherwise as reviewed discharge. Patient is in agreement. - Vital Signs Vital signs: Temp Pulse Resp BP Pulse Ox 97.9 F 98 16 109/62 97 07/17/17 00:50 07/17/17 00:50 07/17/17 00:50 07/17/17 00:50 07/17/17 00:50 - Laboratory Result Diagrams: 07/17/17 02:10 07/17/17 02:10 Laboratory results interpreted by me: 07/17/17 07/17/17 02:10 02:10 Hct 34.1 L RDW 14.1 H Potassium 3.2 L Chloride 109 H Carbon Dioxide 21 L Creatinine 0.33 L Total Protein 5.9 L Discharge - Discharge Clinical Impression: Palpitation Condition: Stable Disposition: HOME, SELF-CARE Additional Instructions: Healthy diet Maintain adequate fluid intake Continue prenatals Monitor symptoms closely for any acute changes Recheck with your PCM/OBGYN in 3-5 days Return to the ED with any worsening symptoms and/or development of fever, headache, chest pain, palpitations, syncope, shortness of breath, trouble breathing, abdominal pain, n/v/d, blood in stool/urine, loss of control of bowel /bladder, urinary retention, muscle weakness/paralysis, saddle anesthesia, numbness/tingling, vaginal bleeding/odor/discharge, or other worsening symptoms that are concerning to you. Referrals: TYLER ISSA MD [Primary Care Provider] - Follow up in 3-5 days
[2017-07-17 02:30] LABS: ABSOLUTE EOSINOPHILS # (AUTO) 0.1 10^3/uL (0.0-0.6); ABSOLUTE LYMPHOCYTES (AUTO) 2.1 10^3/uL (0.5-4.7); ABSOLUTE MONOCYTES (AUTO) 0.7 10^3/uL (0.1-1.4); ABSOLUTE NEUT (AUTO) 6.1 10^3/uL (1.7-8.2); BASOPHILS % (AUTO) 0.2 % (0-2); EOSINOPHILS % (AUTO) 1.4 % (0-6); HEMATOCRIT 34.1 % (36.0-47.0); LYMPHOCYTES % (AUTO) 23.6 % (13-45); MEAN CORPUSCULAR HEMOGLOBIN 32.1 pg (27.0-33.4); MEAN CORPUSCULAR HGB CONC 35.3 g/dL (32.0-36.0); MEAN CORPUSCULAR VOLUME 91 fl (80-97); MONOCYTES % (AUTO) 7.2 % (3-13); PLATELET COUNT 186 10^3/uL (150-450); RED BLOOD COUNT 3.75 10^6/uL (3.72-5.28); RED CELL DISTRIBUTION WIDTH 14.1 % (11.5-14.0); SEGMENTED NEUTROPHILS % (AUTO) 67.6 % (42-78); TOTAL CELLS COUNTED % (AUTO) 100 %
[2017-07-17 02:47] LABS: ALANINE AMINOTRANSFERASE 15 U/L (9-52); ALBUMIN 3.5 g/dL (3.5-5.0); ALKALINE PHOSPHATASE 40 U/L (38-126); ANION GAP 7 (5-19); ASPARTATE AMINO TRANSFERASE 14 U/L (14-36); BILIRUBIN,DIRECT 0.2 mg/dL (0.0-0.4); BILIRUBIN,TOTAL 0.2 mg/dL (0.2-1.3); BLOOD UREA NITROGEN 9 mg/dL (7-20); CALCIUM 9.1 mg/dL (8.4-10.2); CARBON DIOXIDE 21 mmol/L (22-30); CHLORIDE 109 mmol/L (98-107); GLUCOSE 83 mg/dL (75-110); POTASSIUM 3.2 mmol/L (3.6-5.0); SODIUM 137.1 mmol/L (137-145); TOTAL PROTEIN 5.9 g/dL (6.3-8.2)
[2017-07-17 02:48] LABS: AMORPHOUS SEDIMENT,URINE TRACE /HPF; APPEARANCE,URINE CLOUDY; BILIRUBIN,URINE NEGATIVE (NEGATIVE); COLOR,URINE YELLOW; GLUCOSE, URINE NEGATIVE (NEGATIVE); KETONES,URINE NEGATIVE (NEGATIVE); LEUKOCYTE ESTERASE,URINE NEGATIVE (NEGATIVE); NITRITE,URINE NEGATIVE (NEGATIVE); PROTEIN,URINE NEGATIVE (NEGATIVE); URINE SPECIFIC GRAVITY 1.027; UROBILINOGEN,URINE NEGATIVE mg/dL (<2.0)
[2017-07-17 03:16] LABS: FREE T3 3.99 pg/mL (2.77-5.27); FREE T4 (FREE THYROXINE) 0.92 ng/dL (0.78-2.19)
[2017-07-17 03:29] LABS: THYROID STIMULATING HORMONE 3.2 uIU/mL (0.47-4.68)
[2017-07-17 04:56] VITALS: BP 96/60
--- NOTE | 2017-07-17 06:43 | EKG REPORT ---
SEVERITY:- OTHERWISE NORMAL ECG - SINUS TACHYCARDIA : Confirmed by: Harish Weiner MD 17-Jul-2017 06:43:11
== END 2017-07-17 04:56 | disposition home or self-care (01) ==
LOC: ER 00:44
DX: R00.2 Palpitations (principal); R53.1 Weakness; Z3A.21 21 weeks gestation of pregnancy
CPT/HCPCS: 93005; 99285; 96360; 36415; 84439; 84443; 85025; 80053; 81001; 84481; 93010; J7030

== ENCOUNTER 2017-08-12 04:12 | Emergency (ER) | payer MEDICAID ==
[2017-08-12 04:35] VITALS: BP 103/64
[2017-08-12 06:19] LABS: APPEARANCE,URINE CLEAR; BILIRUBIN,URINE NEGATIVE (NEGATIVE); COLOR,URINE STRAW; GLUCOSE, URINE NEGATIVE (NEGATIVE); KETONES,URINE NEGATIVE (NEGATIVE); LEUKOCYTE ESTERASE,URINE NEGATIVE (NEGATIVE); NITRITE,URINE NEGATIVE (NEGATIVE); PROTEIN,URINE NEGATIVE (NEGATIVE); URINE SPECIFIC GRAVITY 1.009; UROBILINOGEN,URINE NEGATIVE mg/dL (<2.0)
[2017-08-12] MEDS ORDERED: NORMAL SALINE 1000 ML 1,000 ML IV ONE (07:03)
[2017-08-12] MEDS ORDERED: NORMAL SALINE 1000 ML 1,000 ML IV PRN (07:03)
[2017-08-12] MEDS ORDERED: PROCHLORPERAZINE EDISYLATE INJ 10 MG/2 ML VIAL IM ONE (07:04)
[2017-08-12] MEDS ORDERED: ACETAMINOPHEN 325 MG TABLET PO ONE (07:04)
[2017-08-12] MEDS ORDERED: PROCHLORPERAZINE EDISYLATE INJ 10 MG/2 ML VIAL IV ONE (08:03)
--- NOTE | 2017-08-12 08:14 | RADIOLOGY REPORT (SQ) ---
EXAM DESCRIPTION: U/S OB 14+ TA/1 GEST W/DOPPLER COMPLETED DATE/TIME: 08/12/2017 7:37 am REASON FOR STUDY: abdominal cramps COMPARISON: None. TECHNIQUE: Static and Dynamic grayscale imaging performed of gravid uterus using transabdominal appr oach. Additional selected color Doppler and spectral images recorded. All stored on PACS. LIMITATIONS: None. FINDINGS: EGA: 24 weeks 1 day TALHA: 12/01/2017 EFW: 671 g grams PERCENTILE: 30 percentile YENNIFER: Adequate PLACENTA: Anterior. PRESENTATION: Transverse. ANATOMY: HEART RATE: 132 beats per minute. FOUR CHAMBER HEART: Visualized. THREE VESSEL CORD: Yes. CORD INSERTION: Visualized. KIDNEYS AND BLADDER: Visualized. Appear normal. STOMACH: Visualized. Appears normal. SPINE: Normal as visualized. BRAIN AND LATERAL VENTRICLES: Visualized. Appear normal. OTHER: No other significant finding. MATERNAL ADNEXA: Maternal ovaries not visualized. CERVICAL LENGTH: 3.7 cm Closed. OTHER: No other significant finding. IMPRESSION: LIVING INTRAUTERINE . ESTIMATED GESTATIONAL AGE 24 weeks 1 days NO VISUALIZED ANOMALIES. Trimester of : Second trimester - 13 weeks 1 day to 27 weeks 6 days. TECHNICAL DOCUMENTATION: JOB ID: [id number] [employer]- All Rights Reserved Reading location - IP/workstation name: [email or web address]
--- NOTE | 2017-08-12 11:07 | ER Document Report ---
ED General - General Chief Complaint: Headache >24 hrs old Stated Complaint: HEADACHE/PELVIC PAIN Time Seen by Provider: 08/12/17 07:01 Notes: History of present illness-21 years old female with a history of , presents today with nausea vomiting abdominal cramps as well as headache. She also has a history of migraine headache. Described as a frontal headache throbbing in nature. Denies any blurring of vision focal weaknesses. Denies any sore throat neck pain neck stiffness. REVIEW OF SYSTEMS: CONSTITUTIONAL : Denies fever, chills, or sweats. Denies recent illness. EENT: Denies eye, ear, throat, or mouth pain or symptoms. Denies nasal or sinus congestion or discharge. Denies throat, tongue, or mouth swelling or difficulty swallowing. CARDIOVASCULAR: Denies chest pain. Denies palpitations or racing or irregular heart beat. Denies ankle edema. RESPIRATORY: Denies cough, cold, or chest congestion. Denies shortness of breath, difficulty breathing, or wheezing. GASTROINTESTINAL: Denies abdominal pain or distention. Denies nausea, vomiting , or diarrhea. Denies blood in vomitus, stools, or per rectum. Denies black, tarry stools. Denies constipation. GENITOURINARY: Denies difficulty urinating, painful urination, burning, frequency, blood in urine, or discharge. FEMALE GENITOURINARY: Denies vaginal bleeding, heavy or abnormal periods, irregular periods. Denies vaginal discharge or odor. MUSCULOSKELETAL: Denies back or neck pain or stiffness. Denies joint pain or swelling. SKIN: Denies rash, lesions or sores. HEMATOLOGIC : Denies easy bruising or bleeding. LYMPHATIC: Denies swollen, enlarged glands. NEUROLOGICAL: Denies confusion or altered mental status. Denies passing out or loss of consciousness. Denies dizziness or lightheadedness. Denies headache. Denies weakness or paralysis or loss of use of either side. Denies problems with gait or speech. Denies sensory loss, numbness, or tingling. Denies seizures. PSYCHIATRIC: Denies anxiety or stress. Denies depression, suicidal ideation, or homicidal ideation. ALL OTHER SYSTEMS REVIEWED AND NEGATIVE. PHYSICAL EXAMINATION: GENERAL: Well-appearing, well-nourished and in no acute distress. HEAD: Atraumatic, normocephalic. EYES: Pupils equal round and reactive to light, extraocular movements intact, conjunctiva are normal. ENT: Nares patent, oropharynx clear without exudates. Moist mucous membranes. NECK: Normal range of motion, supple without lymphadenopathy LUNGS: Breath sounds clear to auscultation bilaterally and equal. No wheezes rales or rhonchi. HEART: Regular rate and rhythm without murmurs ABDOMEN: Soft, nontender, distended abdomen due to , fundus just below the umbilicus. abdomen. No guarding, no rebound. No masses appreciated. Female : deferred Musculoskeletal: Normal range of motion, no pitting or edema. No cyanosis. NEUROLOGICAL: Cranial nerves grossly intact. Normal speech, normal gait. Normal sensory, motor exams PSYCH: Normal mood, normal affect. SKIN: Warm, Dry, normal turgor, no rashes or lesions noted. Dictation was performed using [employer] voice recognition software TRAVEL OUTSIDE OF THE [place] IN LAST 30 DAYS: No - HPI Onset: Just prior to arrival Onset/Duration: Gradual - Related Data Allergies/Adverse Reactions: amoxicillin [Amoxicillin] Allergy (Verified 08/12/17 04:31) midazolam HCl [From Versed] Allergy (Verified 08/12/17 04:31) Past Medical History - Social History Smoking Status: Former Smoker Chew tobacco use (# tins/day): No Frequency of alcohol use: None Drug Abuse: None Family History: Arthritis, DM, Hyperlipidemia Patient has suicidal ideation: No Patient has homicidal ideation: No - Past Medical History Cardiac Medical History: Denies: Hx Coronary Artery Disease, Hx Heart Attack, Hx Hypertension Pulmonary Medical History: Reports: Hx Asthma, Hx Pneumonia - 07/31 - CXR Denies: Hx Bronchitis, Hx COPD Neurological Medical History: Reports: Hx Seizures - 03/01 - topamax . Denies: Hx Cerebrovascular Accident Renal/ Medical History: Denies: Hx Peritoneal Dialysis GI Medical History: Reports: Hx Gastroesophageal Reflux Disease, Hx Hiatal Hernia Musculoskeltal Medical History: Denies Hx Arthritis, Reports Hx Musculoskeletal Trauma Psychiatric Medical History: Reports: Hx Anxiety - panic attacks, Hx Bipolar Disorder, Hx Depression, Hx Post Traumatic Stress Disorder Past Surgical History: Reports: Hx Adenoidectomy, Hx Cholecystectomy, Hx Tonsillectomy - and adenoids. Denies: Hx Hysterectomy - Immunizations Hx Diphtheria, Pertussis, Tetanus Vaccination: Yes Review of Systems - Review of Systems Notes: As per history of complaint Physical Exam - Vital signs Vitals: Temp Pulse Resp BP Pulse Ox 98.4 F 94 16 103/64 98 08/12/17 04:34 08/12/17 04:34 08/12/17 04:34 08/12/17 04:34 08/12/17 04:34 Course - Re-evaluation Re-evalutation: 08/12/17 11:06 Had ultrasound of the abdomen reported as 24 week life . She was given IV fluid and Tylenol for headache. With clinical improvement discharge home. - Vital Signs Vital signs: Temp Pulse Resp BP Pulse Ox 98.4 F 94 16 103/64 98 08/12/17 04:34 08/12/17 04:34 08/12/17 04:34 08/12/17 04:34 08/12/17 04:34 - Laboratory Laboratory results interpreted by me: 08/12/17 06:00 Urine HCG, Qual POSITIVE H - Diagnostic Test Radiology reviewed: Reports reviewed - Radiology report reviewed Discharge - Discharge Clinical Impression: Headache Qualifiers: Headache type: unspecified Headache chronicity pattern: acute headache Intractability: not intractable Qualified Code(s): R51 - Headache Qualifiers: Weeks of gestation: 25 weeks Qualified Code(s): Z3A.25 - 25 weeks gestation of Condition: Fair Disposition: HOME, SELF-CARE Instructions: Headache ([facility]), ([facility]) Referrals: TYLER ISSA MD [Primary Care Provider] - Follow up as needed
== END 2017-08-12 11:19 | disposition home or self-care (01) ==
LOC: ER 04:12
DX: O26.892 Other specified pregnancy related conditions, second trimester (principal); R51 Headache; R10.2 Pelvic and perineal pain; R11.2 Nausea with vomiting, unspecified; R10.9 Unspecified abdominal pain; Z87.891 Personal history of nicotine dependence; Z3A.25 25 weeks gestation of pregnancy
CPT/HCPCS: 99284; 96361; 96374; 81025; 81001; 76805; 93976; J3490; J0780; J7030

== ENCOUNTER 2017-11-19 23:20 | Outpatient (CLI) | payer MEDICAID ==
[2017-11-20] LABS: APPEARANCE,URINE CLEAR; BILIRUBIN,URINE NEGATIVE (NEGATIVE); COLOR,URINE AMBER; GLUCOSE, URINE NEGATIVE (NEGATIVE); KETONES,URINE NEGATIVE (NEGATIVE); LEUKOCYTE ESTERASE,URINE MODERATE (NEGATIVE); NITRITE,URINE NEGATIVE (NEGATIVE); PROTEIN,URINE 30 mg/dL (NEGATIVE); URINE SPECIFIC GRAVITY 1.023
[2017-11-20 00:11] LABS: AMNISURE (ROM) NEGATIVE (NEGATIVE)
[2017-11-20 00:16] LABS: URINE AMPHETAMINES SCREEN NEGATIVE; URINE BARBITURATES SCREEN NEGATIVE; URINE BENZODIAZEPINES SCREEN NEGATIVE; URINE COCAINE SCREEN NEGATIVE; URINE MARIJUANA (THC) SCREEN NEGATIVE; URINE METHADONE SCREEN NEGATIVE; URINE PHENCYCLIDINE SCREEN NEGATIVE
== END 2017-11-20 00:38 | disposition home or self-care (01) ==
LOC: LC 23:20
PROVIDERS: ATTEND Obstetrics & Gynecology Gynecology
PROC: 4A1HXCZ Monitoring of Products of Conception, Cardiac Rate, External Approach (ICD-10-PCS; principal; 2017-11-19)
DX: O47.1 False labor at or after 37 completed weeks of gestation (principal); Z3A.39 39 weeks gestation of pregnancy
CPT/HCPCS: 80307; 81005; 84112

== ENCOUNTER 2017-12-02 09:43 | Outpatient (CLI) | payer MEDICAID ==
[2017-12-02 10:36] LABS: APPEARANCE,URINE SLIGHTLY-CLOUDY; BILIRUBIN,URINE NEGATIVE (NEGATIVE); COLOR,URINE YELLOW; GLUCOSE, URINE NEGATIVE (NEGATIVE); KETONES,URINE NEGATIVE (NEGATIVE); LEUKOCYTE ESTERASE,URINE LARGE (NEGATIVE); NITRITE,URINE NEGATIVE (NEGATIVE); PROTEIN,URINE NEGATIVE (NEGATIVE); URINE SPECIFIC GRAVITY 1.011; UROBILINOGEN,URINE NEGATIVE mg/dL (<2.0)
--- NOTE | 2017-12-02 11:02 | Non Stress Test Report ---
Non Stress Test Datetime Report Generated by CPN: 12/02/2017 11:01 DEMOGRAPHIC Test Number: 1 EGA NST: 40.6 INDICATION Indication for Study: Ordered by Provider MONITORING Monitor Explained: Monitor Explained; Test Explained; Patient Verbalized Understanding Time on Monitor: 12/02/2017 09:56 Time off Monitor: 12/02/2017 10:31 NST Duration: 35 NST INTERVENTIONS NST Interventions: PO Hydration Physician Notified NST: Grubbs BABY A Movement : Present Contraction Frequency : 0 FHR Baseline : 140 Accelerations : 15X15 Decelerations : None Variability : Moderate 6-25bpm NST Review: Meets Criteria for Reactive NST NST Review and Verified By : Grupo Carpio RN NST Results: Reactive NST REPORT Report Trigger: Send Report
[2017-12-02 11:11] LABS: URINE AMPHETAMINES SCREEN NEGATIVE; URINE BARBITURATES SCREEN NEGATIVE; URINE BENZODIAZEPINES SCREEN NEGATIVE; URINE COCAINE SCREEN NEGATIVE; URINE MARIJUANA (THC) SCREEN NEGATIVE; URINE METHADONE SCREEN NEGATIVE; URINE PHENCYCLIDINE SCREEN NEGATIVE
== END 2017-12-02 10:51 | disposition home or self-care (01) ==
LOC: LC 09:43 → EDSTATUS 10:03 → LC 10:51
PROVIDERS: ATTEND Student in an Organized Health Care Education/Training Program
PROC: 4A1HXCZ Monitoring of Products of Conception, Cardiac Rate, External Approach (ICD-10-PCS; principal; 2017-12-02)
DX: O48.0 Post-term pregnancy (principal); Z3A.40 40 weeks gestation of pregnancy
CPT/HCPCS: 59025; 80307; 81005

== ENCOUNTER 2017-12-03 07:13 | Inpatient (IN) | payer MEDICAID ==
[~2017-12-03 07:13] MED LIST: CEFAZOLIN 2 GM/D5W RTU 2 GM/50 ML RTUPB IV PRN
[2017-12-03 07:51] LABS: ABSOLUTE BASOPHILS # (AUTO) 0.1 10^3/uL (0.0-0.2); ABSOLUTE EOSINOPHILS # (AUTO) 0.2 10^3/uL (0.0-0.6); ABSOLUTE LYMPHOCYTES (AUTO) 2.5 10^3/uL (0.5-4.7); ABSOLUTE MONOCYTES (AUTO) 0.8 10^3/uL (0.1-1.4); ABSOLUTE NEUT (AUTO) 9.9 10^3/uL (1.7-8.2); BASOPHILS % (AUTO) 0.4 % (0-2); EOSINOPHILS % (AUTO) 1.6 % (0-6); HEMATOCRIT 35.9 % (36.0-47.0); LYMPHOCYTES % (AUTO) 18.7 % (13-45); MEAN CORPUSCULAR HEMOGLOBIN 28.2 pg (27.0-33.4); MEAN CORPUSCULAR HGB CONC 33.4 g/dL (32.0-36.0); MEAN CORPUSCULAR VOLUME 84 fl (80-97); PLATELET COUNT 197 10^3/uL (150-450); RED BLOOD COUNT 4.25 10^6/uL (3.72-5.28); RED CELL DISTRIBUTION WIDTH 14.6 % (11.5-14.0); SEGMENTED NEUTROPHILS % (AUTO) 73.3 % (42-78); TOTAL CELLS COUNTED % (AUTO) 100 %; WHITE BLOOD COUNT 13.4 10^3/uL (4.0-10.5)
[2017-12-03] MEDS ORDERED: KETOROLAC TROMETHAMINE INJ/PF 30 MG/1 ML SDV ONE (09:22)
[2017-12-03] MEDS ORDERED: OXYTOCIN 10 UNIT/ML VIAL ONE (09:22)
[2017-12-03] MEDS ORDERED: FENTANYL CITRATE INJ/PF 100 MCG/2 ML AMPUL ONE ×2 (09:22→11:48)
[2017-12-03] MEDS ORDERED: OXYTOCIN/NORMAL SALINE 0 UNIT/0 ML RTUINJ ONE (09:23)
[2017-12-03] MEDS ORDERED: ACETAMINOPHEN 1,000 MG/100 ML RTUPB IV ONE (09:23)
[2017-12-03] MEDS ORDERED: MIDAZOLAM 2 MG/2 ML INJ ONE (09:23)
[2017-12-03] MEDS ORDERED: EPHEDRINE SULFATE INJ 50 MG/1 ML AMPULE ONE (09:23)
[2017-12-03] MEDS ORDERED: BUPIVACAINE HCL/DEX-WATER/PF 15 MG/2 ML AMPULE ONE (09:23)
[2017-12-03] MEDS ORDERED: DIPHENHYDRAMINE HCL 50 MG/ML VIAL IV PRN (09:59)
[2017-12-03] MEDS ORDERED: ONDANSETRON HCL INJ/PF 4 MG/2 ML SDV IV PRN (09:59)
[2017-12-03] MEDS ORDERED: FENTANYL CITRATE INJ/PF 100 MCG/2 ML AMPUL IV PRN ×3 (09:59)
[2017-12-03] MEDS ORDERED: PROMETHAZINE HCL INJ 25 MG/1 ML VIAL IV PRN ×3 (09:59→10:23)
[2017-12-03] MEDS ORDERED: MEPERIDINE HCL/PF INJ 25 MG/1 ML DISP.SYRIN IV PRN (09:59)
[2017-12-03] MEDS ORDERED: OXYCODONE-ACETAMINOPHEN 5-325 MG TABLET PO PRN ×3 (09:59→10:23)
--- NOTE | 2017-12-03 10:22 | PDOC DELIVERY SUMMARY ---
Delivery Summary - Maternal Hx : II Hx Total # of Abortions (Sponateous & Elective): 1 TALHA: 11/26/17 Gestational Age: 41 Risk Factors: Other Ruptured Membranes: AROM Time of Rupture: 09:52 Fluids: Clear - Delivery Presentation: Vertex Heart Rate Monitoring: Done Pre-Operatively Uterine Contraction Monitoring: External Support Person Present: Yes Location: OR : Scheduled Placenta: Within Normal Limits Nuchal Cord: Yes Delivery of Placenta Date: 12/03/17 Delivery of Placenta Time: 09:54 - Medications Type of Anesthesia:: Spinal - Infant Assess and Care Baby 1 Female Delivery of Infant Date: 12/03/17 Delivery of Time: 09:53 at 1 minute: 9 at 5 minutes: 9 Preprinted Number On Band: [id number] Infant Skin to Skin: Yes Skin to Skin (Mins): 5 To Nursery At: 10:05 Mode of Transport: Bassinet - Delivery Personnel Carpenter Assembler: FLORA PINEDA RN: CHARLES MONGE RN: ZIA OLMSTEAD MD: HORACE IZAGUIRRE
[2017-12-03] MEDS ORDERED: ACETAMINOPHEN 325 MG TABLET PO PRN (10:23)
[2017-12-03] MEDS ORDERED: SIMETHICONE 80 MG TAB.CHEW PO PRN (10:23)
[2017-12-03] MEDS ORDERED: OXYTOCIN/NORMAL SALINE 20 UNIT/1,000 ML RTUINJ IV PRN (10:23)
[2017-12-03] MEDS ORDERED: MEASLES,MUMPS&RUBELLA VACC/PF 0.5 ML VIAL SUBCUT PRN (10:23)
[2017-12-03] MEDS ORDERED: DIPH/PERTUSS(ACELL)/TETANUS VAC/PF 0.5 ML SYR (>=10YO) IM PRN (10:23)
--- NOTE | 2017-12-03 10:40 | OPERATIVE REPORT E ---
Operative Report NAME: WESTLEY MICHEL : 1995 AGE: 21Y DATE OF SURGERY: 12/03/2017 ROOM: 222 PREOPERATIVE DIAGNOSIS: IUP at term with current HSV infection. 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 OPERATION: Primary low-transverse with delivery of a viable female, 9 ad 9 Apgars, 7 pounds 4 ounces. SURGEON: Frances IZAGUIRRE M.D. ANESTHESIA: Spinal. ESTIMATED BLOOD LOSS: Less than 1000 mL. TISSUE REMOVED OR ALTERED: Placenta. PROCEDURE: The patient was placed in dorsal lithotomy position, prepped and draped in sterile fashion. A Pfannenstiel incision was made. The incision extended through subcutaneous tissue with sharp dissection by a sharp divider. The rectus muscle was bluntly and sharply divided. Parietal peritoneum was entered with sharp dissection. The uterus was nicked in the midline, extended bilaterally, infant was then delivered through the uterine abdominal incision. The nose and mouth were suctioned with bulb syringe. Cord was clamped, infant was passed from the table. The placenta was manually extracted. The uterus was closed in two layers, first with a running stitch of 0 Vicryl and the second a Lembert stitch imbricating the first layer. Two areas of bleeding were noted, were controlled with [id number] sutures of 0 Vicryl. Hemostasis was noted. Fascia closed with 0 Vicryl. The skin was closed with subcutaneous absorbable perlita. Her urine remained clear throughout the procedure. She was taken to the recovery room in good condition and the infant to the nursery in good condition. DICTATING PHYSICIAN: Frances IZAGUIRRE M.D. [id number] PHY#: [id number] ID: [id number] JOB#: [id number] ACCT: [id number] cc:Frances IZAGUIRRE M.D. >
[2017-12-03] MEDS ORDERED: OXYTOCIN/NORMAL SALINE 20 UNIT/1,000 ML RTUINJ ONE (11:28)
[2017-12-03] MEDS: MORPHINE SULFATE 10 MG/ML INJ IM PRN ×3 (12:52→22:03)
[2017-12-03] MEDS: OXYCODONE-ACETAMINOPHEN 5-325 MG TABLET PO PRN (13:55)
[2017-12-03] MEDS: DOCUSATE SODIUM 100 MG CAPSULE PO SCH (16:57)
[2017-12-03] MEDS: IBUPROFEN 800 MG TABLET PO SCH (17:01)
[2017-12-04] MEDS: IBUPROFEN 800 MG TABLET PO SCH ×5 (01:58→23:48)
[2017-12-04] MEDS ORDERED: ALBUTEROL SULFATE HFA (90 MCG/PUFF) 200 PUFF/8.5 GM MDI IH PRN (03:31)
[2017-12-04] MEDS ORDERED: ALBUTEROL SULFATE HFA (90 MCG/PUFF) 200 PUFF/8.5 GM MDI IH ONE (04:15)
[2017-12-04] MEDS: OXYCODONE-ACETAMINOPHEN 5-325 MG TABLET PO PRN ×2 (04:35→15:30)
[2017-12-04 06:37] LABS: HEMATOCRIT 31.5 % (36.0-47.0); HEMOGLOBIN 10.6 g/dL (12.0-15.5); MEAN CORPUSCULAR HEMOGLOBIN 28.4 pg (27.0-33.4); MEAN CORPUSCULAR HGB CONC 33.6 g/dL (32.0-36.0); MEAN CORPUSCULAR VOLUME 85 fl (80-97); PLATELET COUNT 187 10^3/uL (150-450); RED BLOOD COUNT 3.72 10^6/uL (3.72-5.28); RED CELL DISTRIBUTION WIDTH 14.8 % (11.5-14.0); WHITE BLOOD COUNT 11.5 10^3/uL (4.0-10.5)
[2017-12-04] MEDS: DOCUSATE SODIUM 100 MG CAPSULE PO SCH ×2 (09:49→17:27)
[2017-12-04] MEDS: PRENATAL VITAMIN W DHA CAPSULE PO SCH (09:49)
--- NOTE | 2017-12-04 10:42 | PDOC PROGRESS REPORT ---
Subjective-OB Progress Note for:: 12/04/17 Physical Exam (OB) Vital Signs: Temp Pulse Resp BP Pulse Ox 97.9 F 68 17 104/67 96 12/04/17 08:11 12/04/17 08:11 12/04/17 08:11 12/04/17 08:11 12/04/17 08:11 Intake & Output 12/03/17 12/04/17 12/05/17 06:59 06:59 06:59 Intake Total 2436 Output Total 3520 1750 Balance -1084 -1750 Weight 66.3 kg - PIH/Pre-Eclampsia Clonus: Negative - Dressing Removed: No Incision: Dressing - Lochia Lochia Amount: Scant < 10 ml Lochia Color: Rubra/Red - Abdomen Description: Tender Hernia Present: No Bowel Sounds: Normoactive Flatus Presence: Present Stool: No Fundal Description: Firm, Midline Fundal Height: u/u - u/2 Objective-Diagnostic Laboratory: 12/04/17 06:26 12/04/17 06:26 WBC 11.5 H RBC 3.72 Hgb 10.6 L Hct 31.5 L MCV 85 MCH 28.4 MCHC 33.6 RDW 14.8 H Plt Count 187
[2017-12-05] MEDS: OXYCODONE-ACETAMINOPHEN 5-325 MG TABLET PO PRN ×3 (00:35→12:16)
[2017-12-05] MEDS: IBUPROFEN 800 MG TABLET PO SCH ×4 (06:01→23:08)
[2017-12-05] MEDS: DOCUSATE SODIUM 100 MG CAPSULE PO SCH ×2 (09:04→17:12)
[2017-12-05] MEDS: PRENATAL VITAMIN W DHA CAPSULE PO SCH (09:05)
--- NOTE | 2017-12-05 12:49 | PDOC PROGRESS REPORT ---
Subjective-OB Progress Note for:: 12/05/17 Subjective: Tearful as echocardiography radiology technologist req HSV testing on patient and baby and keeping baby overnight. Family unaware of dx of HSV. Physical Exam (OB) Vital Signs: Temp Pulse Resp BP Pulse Ox 98.6 F 82 18 107/64 98 12/05/17 12:09 12/05/17 12:09 12/05/17 12:09 12/05/17 12:09 12/05/17 12:09 Intake & Output 12/04/17 12/05/17 12/06/17 06:59 06:59 06:59 Intake Total 2436 525 240 Output Total 3520 2000 Balance -0946 -6228 240 Weight 66.3 kg - PIH/Pre-Eclampsia Clonus: Negative - Dressing Removed: No Incision: Well Approximated Closure Type: op site - Lochia Lochia Amount: Scant < 10 ml Lochia Color: Rubra/Red - Abdomen Description: Tender, Soft, Round Hernia Present: No Bowel Sounds: Normoactive Flatus Presence: Present Stool: No Fundal Description: Firm, Midline Fundal Height: u/u - u/2 Objective-Diagnostic Laboratory: 12/04/17 06:26
[2017-12-06 03:28] VITALS: BP 110/60
[2017-12-06] MEDS: IBUPROFEN 800 MG TABLET PO SCH (04:56)
[2017-12-06] MEDS: DOCUSATE SODIUM 100 MG CAPSULE PO SCH (10:20)
[2017-12-06] MEDS: PRENATAL VITAMIN W DHA CAPSULE PO SCH (10:21)
--- NOTE | 2017-12-06 10:39 | PDOC PROGRESS REPORT ---
Subjective-OB Progress Note for:: 12/06/17 Subjective: Ready for discharge. Will nest. Physical Exam (OB) Vital Signs: Temp Pulse Resp BP Pulse Ox 97.7 F 67 16 110/60 97 12/06/17 03:10 12/06/17 03:10 12/06/17 03:10 12/06/17 03:10 12/06/17 03:10 Intake & Output 12/05/17 12/06/17 12/07/17 06:59 06:59 06:59 Intake Total 525 480 Output Total 2000 Balance -1475 480 - PIH/Pre-Eclampsia Clonus: Negative - Dressing Removed: No Incision: Dressing Closure Type: opsite - Lochia Lochia Amount: Scant < 10 ml Lochia Color: Rubra/Red - Abdomen Description: Tender, Soft, Round Hernia Present: No Bowel Sounds: Normoactive Flatus Presence: Present Stool: No Fundal Description: Firm, Midline Fundal Height: u/u - u/2 Objective-Diagnostic Laboratory: 12/04/17 06:26
--- NOTE | 2017-12-06 10:49 | PDOC DISCHARGE SUMMARY ---
Final Diagnosis Discharge Date: 12/06/17 - Final Diagnosis (1) Delivery by elective caesarean section Is this a current diagnosis for this admission?: Yes (2) Depression with anxiety Is this a current diagnosis for this admission?: Yes (3) HSV infection Is this a current diagnosis for this admission?: Yes (4) Is this a current diagnosis for this admission?: Yes Discharge Data - Discharge Medication Prescriptions: Oxycodone HCl/Acetaminophen [Percocet 5-325 mg Tablet] 1 tab PO Q4HP PRN #20 tablet PRN Reason: Docusate Sodium [Colace 100 mg Capsule] 100 mg PO BID #30 capsule Ibuprofen [Motrin 800 mg Tablet] 800 mg PO Q6 #30 tablet Home Medications: Albuterol Sulfate [Proair HFA] 2 puff PO Q4 PRN 08/17/15 Vit/Iron Fum/Folic AC [ Tablet] 1 each PO DAILY 11/19/17 Valacyclovir HCl [Valtrex] 1,000 mg PO DAILY 11/19/17 Docusate Sodium [Colace 100 mg Capsule] 100 mg PO BID #30 capsule 12/06/17 Ibuprofen [Motrin 800 mg Tablet] 800 mg PO Q6 #30 tablet 12/06/17 Oxycodone HCl/Acetaminophen [Percocet 5-325 mg Tablet] 1 tab PO Q4HP PRN #20 tablet 12/06/17 Gestational Age: 41 wks Reason(s) for Admission: Ceasarean Section-Primary, Other Procedures: Ultrasound Intrapartum Procedure(s): : Low Cervical, Transverse - Data Baby 1 Female at 1 minute: 9 at 5 minutes: 9 Weight: 3300 kg Home with Mother: No Complications: Yes - Pending cultures - Diagnosis Test Laboratory: Temp Pulse Resp BP Pulse Ox 97.7 F 67 16 110/60 97 12/06/17 03:10 12/06/17 03:10 12/06/17 03:10 12/06/17 03:10 12/06/17 03:10 12/03/17 12/04/17 07:35 06:26 RBC 4.25 3.72 Hgb 12.0 10.6 L Hct 35.9 L 31.5 L - Discharge information/Instructions Discharge Activity: Activity As Tolerated, Balance Activity w/Rest, No Driving, No Lifting Over 10 Pounds, No Lifting/Push/Pulling, Pelvic Rest, Slowly Increase Activity, No tub bath Discharge Diet: Regular Disposition: HOME, SELF-CARE Follow up with: [facility] in: 1, Weeks
[2017-12-08 09:07] LABS: HSV-I IGG AB <0.91 index (0.00-0.90); HSV-II IGG AB 3.67 index (0.00-0.90)
== END 2017-12-06 11:40 | disposition home or self-care (01) | DRG 765 ==
LOC: 2S 07:13
PROVIDERS: ADMIT Obstetrics & Gynecology Gynecology; ATTEND Obstetrics & Gynecology Gynecology
PROC: 10D00Z1 Extraction of Products of Conception, Low, Open Approach (ICD-10-PCS; principal; 2017-12-03 09:15)
DX: O98.32 Other infections with a predominantly sexual mode of transmission complicating childbirth (principal); O36.5930 Maternal care for other known or suspected poor fetal growth, third trimester, not applicable or unspecified; O99.824 Streptococcus B carrier state complicating childbirth; A60.00 Herpesviral infection of urogenital system, unspecified; O48.0 Post-term pregnancy; O99.52 Diseases of the respiratory system complicating childbirth; J45.909 Unspecified asthma, uncomplicated; O99.344 Other mental disorders complicating childbirth; F41.8 Other specified anxiety disorders; Z37.0 Single live birth; Z3A.41 41 weeks gestation of pregnancy
CPT/HCPCS: 1961; 36415; 59025; 85025; 85027; 86695; 86696; 86850; 86900; 86901; 94799; J0131; J0690; J1885; J2250; J2270; J2590; J3010; J3490

== ENCOUNTER 2018-01-08 18:10 | Emergency (ER) | payer MEDICAID ==
--- NOTE | 2018-01-08 19:34 | ER Document Report ---
ED Medical Screen (RME) - General Chief Complaint: Abdominal Pain Stated Complaint: ABDOMINAL PAIN Time Seen by Provider: 01/08/18 19:32 Mode of Arrival: Ambulatory Information source: Patient Notes: Patient is an otherwise healthy 22-year-old female who presents with chief complaint of low abdominal pain over the last 2 days. Patient reports associated diarrhea but denies nausea, vomiting, fever, urinary symptoms or vaginal discharge. Patient is status post on 12/03/17 done here at [facility] by [facility]. Patient has a low transverse incision that appears to be healing well. Patient reports the pain is located directly behind her incision. Patient is tachycardic on arrival with a heart rate of 118. Exam: Tenderness to palpation to low abdomen. Lung sounds clear to auscultation bilaterally. I have greeted and performed a rapid initial assessment of this patient. A comprehensive ED assessment and evaluation of the patient, analysis of test results and completion of the medical decision making process will be conducted by additional ED providers. Dictation of this chart was performed using voice recognition software; therefore, there may be some unintended grammatical errors. TRAVEL OUTSIDE OF THE [place] IN LAST 30 DAYS: No - Related Data Allergies/Adverse Reactions: amoxicillin [Amoxicillin] Allergy (Verified 11/19/17 23:59) midazolam HCl [From Versed] Allergy (Verified 11/19/17 23:59) Past Medical History - Social History Chew tobacco use (# tins/day): No Frequency of alcohol use: Rare Drug Abuse: None - Past Medical History Cardiac Medical History: Denies: Hx Coronary Artery Disease, Hx Heart Attack, Hx Hypertension, Hx Pulmonary Embolism, Hx Heart Murmur Pulmonary Medical History: Reports: Hx Asthma, Hx Pneumonia - 07/31 - CXR Denies: Hx Bronchitis, Hx COPD, Hx Sleep Apnea, Hx Tuberculosis Neurological Medical History: Reports: Hx Seizures - 03/01 - topamax . Denies: Hx Cerebrovascular Accident Endocrine Medical History: Denies: Hx Hyperthyroidism, Hx Hypothyroidism Renal/ Medical History: Denies: Hx Peritoneal Dialysis GI Medical History: Reports: Hx Gastroesophageal Reflux Disease, Hx Hiatal Hernia Musculoskeltal Medical History: Denies Hx Arthritis, Denies Hx Fibromyalgia, Reports Hx Musculoskeletal Trauma Psychiatric Medical History: Reports: Hx Anxiety - panic attacks, Hx Bipolar Disorder, Hx Depression, Hx Post Traumatic Stress Disorder Traumatic Medical History: Denies: Hx Fractures Infectious Medical History: Denies: Hx HIV Past Surgical History: Reports: Hx Adenoidectomy, Hx Section - 12/03/17 , Hx Cholecystectomy, Hx Tonsillectomy - and adenoids. Denies: Hx Hysterectomy - Immunizations Hx Diphtheria, Pertussis, Tetanus Vaccination: Yes Physical Exam - Vital signs Vitals: Temp Pulse BP Pulse Ox 99.4 F 118 H 110/72 99 01/08/18 18:16 01/08/18 18:16 01/08/18 18:16 01/08/18 18:16 Course - Vital Signs Vital signs: Temp Pulse Resp BP Pulse Ox 99.4 F 118 H 110/72 99 01/08/18 18:16 01/08/18 18:16 01/08/18 18:16 01/08/18 18:16 Doctor's Discharge - Discharge Referrals: HORACE IZAGUIRRE MD [Primary Care Provider] - Follow up as needed
[2018-01-08 20:54] LABS: ABSOLUTE EOSINOPHILS # (AUTO) 0.2 10^3/uL (0.0-0.6); ABSOLUTE LYMPHOCYTES (AUTO) 2.9 10^3/uL (0.5-4.7); ABSOLUTE MONOCYTES (AUTO) 0.6 10^3/uL (0.1-1.4); ABSOLUTE NEUT (AUTO) 6.6 10^3/uL (1.7-8.2); BASOPHILS % (AUTO) 0.3 % (0-2); EOSINOPHILS % (AUTO) 2.3 % (0-6); HEMATOCRIT 41.8 % (36.0-47.0); HEMOGLOBIN 13.9 g/dL (12.0-15.5); LYMPHOCYTES % (AUTO) 27.9 % (13-45); MEAN CORPUSCULAR HEMOGLOBIN 28.1 pg (27.0-33.4); MEAN CORPUSCULAR HGB CONC 33.3 g/dL (32.0-36.0); MEAN CORPUSCULAR VOLUME 84 fl (80-97); MONOCYTES % (AUTO) 6.1 % (3-13); PLATELET COUNT 238 10^3/uL (150-450); RED BLOOD COUNT 4.95 10^6/uL (3.72-5.28); RED CELL DISTRIBUTION WIDTH 16.6 % (11.5-14.0); SEGMENTED NEUTROPHILS % (AUTO) 63.4 % (42-78); TOTAL CELLS COUNTED % (AUTO) 100 %; WHITE BLOOD COUNT 10.3 10^3/uL (4.0-10.5)
[2018-01-08] MEDS ORDERED: MORPHINE SULFATE 10 MG/ML INJ IV ONE ×2 (21:32→23:48)
[2018-01-08] MEDS ORDERED: ONDANSETRON HCL INJ/PF 4 MG/2 ML SDV IV ONE (21:32)
[2018-01-08] MEDS ORDERED: NORMAL SALINE 1000 ML 1,000 ML IV ONE (21:32)
--- NOTE | 2018-01-08 21:40 | ER Document Report ---
ED GI/ - General Chief Complaint: Abdominal Pain Stated Complaint: ABDOMINAL PAIN Time Seen by Provider: 01/08/18 19:32 Mode of Arrival: Ambulatory Notes: Patient is an otherwise healthy 22-year-old female who presents with chief complaint of low abdominal pain over the last 2 days. Patient reports associated diarrhea but denies nausea, vomiting, fever, urinary symptoms or vaginal discharge. Patient is status post on 12/03/17 done here at [place] [facility]. Patient has a low transverse incision that appears to be healing well. Patient reports the pain is located directly behind her incision. Patient is tachycardic on arrival with a heart rate of 118. TRAVEL OUTSIDE OF THE [place] IN LAST 30 DAYS: No - Related Data Allergies/Adverse Reactions: amoxicillin [Amoxicillin] Allergy (Verified 11/19/17 23:59) midazolam HCl [From Versed] Allergy (Verified 11/19/17 23:59) Past Medical History - General Information source: Patient - Social History Smoking Status: Never Smoker Chew tobacco use (# tins/day): No Frequency of alcohol use: Rare Drug Abuse: None Family History: Arthritis, DM, Hyperlipidemia Patient has suicidal ideation: No Patient has homicidal ideation: No - Past Medical History Cardiac Medical History: Denies: Hx Coronary Artery Disease, Hx Heart Attack, Hx Hypertension, Hx Pulmonary Embolism, Hx Heart Murmur Pulmonary Medical History: Reports: Hx Asthma, Hx Pneumonia - 07/31 - CXR Denies: Hx Bronchitis, Hx COPD, Hx Sleep Apnea, Hx Tuberculosis Neurological Medical History: Reports: Hx Seizures - 03/01 - topamax . Denies: Hx Cerebrovascular Accident Endocrine Medical History: Denies: Hx Hyperthyroidism, Hx Hypothyroidism Renal/ Medical History: Denies: Hx Peritoneal Dialysis GI Medical History: Reports: Hx Gastroesophageal Reflux Disease, Hx Hiatal Hernia Musculoskeletal Medical History: Denies Hx Arthritis, Denies Hx Fibromyalgia, Reports Hx Musculoskeletal Trauma Psychiatric Medical History: Reports: Hx Anxiety - panic attacks, Hx Bipolar Disorder, Hx Depression, Hx Post Traumatic Stress Disorder Traumatic Medical History: Denies: Hx Fractures Infectious Medical History: Denies: Hx HIV Past Surgical History: Reports: Hx Adenoidectomy, Hx Section - 12/03/17 , Hx Cholecystectomy, Hx Tonsillectomy - and adenoids. Denies: Hx Hysterectomy - Immunizations Hx Diphtheria, Pertussis, Tetanus Vaccination: Yes Review of Systems - Review of Systems Constitutional: No symptoms reported EENT: No symptoms reported Cardiovascular: No symptoms reported Respiratory: No symptoms reported Gastrointestinal: No symptoms reported Genitourinary: No symptoms reported Female Genitourinary: See HPI Musculoskeletal: No symptoms reported Skin: See HPI Hematologic/Lymphatic: No symptoms reported Neurological/Psychological: No symptoms reported Physical Exam - Vital signs Vitals: Temp Pulse BP Pulse Ox 99.4 F 118 H 110/72 99 01/08/18 18:16 01/08/18 18:16 01/08/18 18:16 01/08/18 18:16 - Notes Notes: PHYSICAL EXAMINATION: GENERAL: Well-appearing, well-nourished and in no acute distress. HEAD: Atraumatic, normocephalic. EYES: Pupils equal round and reactive to light, extraocular movements intact, conjunctiva are normal. ENT: Nares patent, oropharynx clear without exudates. Moist mucous membranes. NECK: Normal range of motion, supple without lymphadenopathy LUNGS: Breath sounds clear to auscultation bilaterally and equal. No wheezes rales or rhonchi. HEART: Regular rate and rhythm without murmurs ABDOMEN: Soft, nondistended abdomen. Tenderness to palpation over incision. No guarding, no rebound. No masses appreciated. Female : deferred Musculoskeletal: Normal range of motion, no pitting or edema. No cyanosis. NEUROLOGICAL: Cranial nerves grossly intact. Normal speech, normal gait. Normal sensory, motor exams PSYCH: Normal mood, normal affect. SKIN: Warm, Dry, normal turgor, no rashes or lesions noted. Low transverse incision noted, healing well no erythema, drainage or swelling noted. Course - Re-evaluation Re-evalutation: CBC, CMP and urinalysis are all on room a couple. Patient's vital signs are stable and patient is without any tachycardia or fever. Pelvic ultrasound reveals a 0.5cm fluid collection. Consult to Dr. Pugh who agrees to see patient in the office as patient is afebrile, has a normal white blood count and has resolved tachycardia. - Vital Signs Vital signs: Temp Pulse Resp BP Pulse Ox 97.8 F 63 18 96/61 L 99 01/09/18 00:56 01/09/18 00:56 01/09/18 00:56 01/09/18 00:56 01/09/18 00:56 - Laboratory Result Diagrams: 01/08/18 20:05 01/08/18 21:20 Laboratory results interpreted by me: 01/08/18 01/08/18 01/08/18 20:05 20:05 21:20 RDW 16.6 H BUN 6 L Urine Urobilinogen 2.0 H Urine Ascorbic Acid 40 H Discharge - Discharge Clinical Impression: Seroma, postoperative Qualifiers: Surgical complication system/body Area: genitourinary Procedure type: genitourinary Qualified Code(s): N99.842 - Postprocedural seroma of a genitourinary system organ or structure following a genitourinary system procedure Condition: Stable Disposition: HOME, SELF-CARE Additional Instructions: You have a small fluid collection behind the incision of your . This may drain, do not let this alarm you. Please take ibuprofen 800 mg every 8 hours. Use the hydrocodone for severe pain. You may take 0.5 to 1 tablet every 4 hours as needed. Please call [facility] Thursday. Tell them you were seen in the emergency department over the weekend. Tell them that the emergency room provider consulted with Dr. Pugh who would like you seen in the office on Thursday. Please return to the emergency department if you develop worsening pain, fever or any other symptoms that is concerning to you. Referrals: HORACE PUGH MD [ACTIVE STAFF] - Follow up as needed
[2018-01-08 21:42] LABS: APPEARANCE,URINE TURBID; BILIRUBIN,URINE NEGATIVE (NEGATIVE); COLOR,URINE YELLOW; GLUCOSE, URINE NEGATIVE (NEGATIVE); KETONES,URINE NEGATIVE (NEGATIVE); LEUKOCYTE ESTERASE,URINE NEGATIVE (NEGATIVE); NITRITE,URINE NEGATIVE (NEGATIVE); PROTEIN,URINE NEGATIVE (NEGATIVE); URINE SPECIFIC GRAVITY 1.027
[2018-01-08 21:57] LABS: ALANINE AMINOTRANSFERASE 31 U/L (9-52); ALBUMIN 4.2 g/dL (3.5-5.0); ALKALINE PHOSPHATASE 74 U/L (38-126); ANION GAP 12 (5-19); ASPARTATE AMINO TRANSFERASE 23 U/L (14-36); BILIRUBIN,DIRECT 0.2 mg/dL (0.0-0.4); BILIRUBIN,TOTAL 0.4 mg/dL (0.2-1.3); BLOOD UREA NITROGEN 6 mg/dL (7-20); CALCIUM 9.4 mg/dL (8.4-10.2); CARBON DIOXIDE 25 mmol/L (22-30); CHLORIDE 105 mmol/L (98-107); GLUCOSE 85 mg/dL (75-110); POTASSIUM 3.7 mmol/L (3.6-5.0); SODIUM 141.5 mmol/L (137-145); TOTAL PROTEIN 6.9 g/dL (6.3-8.2)
--- NOTE | 2018-01-08 23:55 | RADIOLOGY REPORT (SQ) ---
EXAM DESCRIPTION: US PELVIS LIMITED COMPLETED DATE/TME: 01/08/2018 21:32 CLINICAL HISTORY: 22 years, Female, 12/03, pelvic pain in the anterior pelvic wall at the level of the scar. COMPARISON: None. TECHNIQUE: Limited transabdominal pelvic ultrasound. FINDINGS: A incision is identified in the area of patient's pain. There is a very tiny focus of subcutaneous fluid identified as well as mild subcutaneous edema. The minimally complex fluid collection measures 0.5 x 0.2 cm in greatest dimensions. It is on color Doppler images demonstrate no definite increased blood flow. IMPRESSION: 1. Subcutaneous edema with very small ill-defined fluid collection at the incision site measuring 0.5 cm. These findings are nonspecific and could be seen with postoperative seroma however cellulitis or early abscess formation not excluded. 2011 [employer]- All Rights Reserved
[2018-01-09] MEDS ORDERED: HYDROCODONE/ACETAMINOPHEN 5-325 MG (6 TAB/ER DISP) PO PRN (00:29)
[2018-01-09] MEDS ORDERED: IBUPROFEN 600 MG TABLET PO ONE (00:41)
[2018-01-09] MEDS ORDERED: OXYCODONE-ACETAMINOPHEN 5-325 MG TABLET PO ONE (00:41)
[2018-01-09 00:57] VITALS: BP 96/61
== END 2018-01-09 00:57 | disposition home or self-care (01) ==
LOC: ER 18:10
DX: O90.2 Hematoma of obstetric wound (principal); O90.89 Other complications of the puerperium, not elsewhere classified; R10.30 Lower abdominal pain, unspecified; R19.7 Diarrhea, unspecified; R00.0 Tachycardia, unspecified; O99.53 Diseases of the respiratory system complicating the puerperium; J45.909 Unspecified asthma, uncomplicated; Z88.0 Allergy status to penicillin; Z88.4 Allergy status to anesthetic agent
CPT/HCPCS: 96376; 99284; 96361; 96374; 96375; 36415; 85025; 80053; 81001; 76857; 93976; J3490; J2270; J2405; J7030

== ENCOUNTER 2018-01-17 17:52 | Emergency (ER) | payer MEDICAID ==
--- NOTE | 2018-01-17 18:54 | ER Document Report ---
ED Medical Screen (RME) - General Chief Complaint: Post Surgical Pain Stated Complaint: SURGICAL SITE ISSUE Time Seen by Provider: 01/17/18 18:51 TRAVEL OUTSIDE OF THE [place] IN LAST 30 DAYS: No - HPI Notes: 01/17/18 18:52 Patient coming in recent with ultrasound showing fluid collection is followed by [facility] placed on doxycycline for possible abscess. Patient states she feels like she is not getting any better. - Related Data Allergies/Adverse Reactions: amoxicillin [Amoxicillin] Allergy (Verified 11/19/17 23:59) midazolam HCl [From Versed] Allergy (Verified 11/19/17 23:59) Past Medical History - Past Medical History Cardiac Medical History: Denies: Hx Coronary Artery Disease, Hx Heart Attack, Hx Hypertension, Hx Pulmonary Embolism, Hx Heart Murmur Pulmonary Medical History: Reports: Hx Asthma, Hx Pneumonia - 07/31 - CXR Denies: Hx Bronchitis, Hx COPD, Hx Sleep Apnea, Hx Tuberculosis Neurological Medical History: Reports: Hx Seizures - 03/01 - topamax . Denies: Hx Cerebrovascular Accident Endocrine Medical History: Denies: Hx Hyperthyroidism, Hx Hypothyroidism Renal/ Medical History: Denies: Hx Peritoneal Dialysis GI Medical History: Reports: Hx Gastroesophageal Reflux Disease, Hx Hiatal Hernia Musculoskeltal Medical History: Denies Hx Arthritis, Denies Hx Fibromyalgia, Reports Hx Musculoskeletal Trauma Psychiatric Medical History: Reports: Hx Anxiety - panic attacks, Hx Bipolar Disorder, Hx Depression, Hx Post Traumatic Stress Disorder Traumatic Medical History: Denies: Hx Fractures Infectious Medical History: Denies: Hx HIV Past Surgical History: Reports: Hx Adenoidectomy, Hx Section - 12/03/17 , Hx Cholecystectomy, Hx Tonsillectomy - and adenoids. Denies: Hx Hysterectomy - Immunizations Hx Diphtheria, Pertussis, Tetanus Vaccination: Yes Review of Systems - Review of Systems Constitutional: No symptoms reported EENT: No symptoms reported Cardiovascular: No symptoms reported Respiratory: No symptoms reported Gastrointestinal: Abdominal pain Genitourinary: No symptoms reported Female Genitourinary: No symptoms reported Musculoskeletal: No symptoms reported Skin: No symptoms reported Hematologic/Lymphatic: No symptoms reported Neurological/Psychological: No symptoms reported -: Yes All other systems reviewed and negative Physical Exam - Vital signs Vitals: Temp Pulse Resp BP Pulse Ox 98.3 F 99 14 106/70 100 01/17/18 17:56 01/17/18 17:56 01/17/18 17:56 01/17/18 17:56 01/17/18 17:56 - Respiratory Respiratory status: No respiratory distress Chest status: Nontender Breath sounds: Normal Chest palpation: Normal Course - Vital Signs Vital signs: Temp Pulse Resp BP Pulse Ox 98.3 F 99 14 106/70 100 01/17/18 17:56 01/17/18 17:56 01/17/18 17:56 01/17/18 17:56 01/17/18 17:56
--- NOTE | 2018-01-17 19:56 | RADIOLOGY REPORT (SQ) ---
EXAM DESCRIPTION: U/S ABDOMEN LIMITED W/O DOP COMPLETED DATE/TIME: 01/17/2018 7:40 pm REASON FOR STUDY: eval c section wound for abscess COMPARISON: 01/08/2018. TECHNIQUE: Dynamic and static grayscale images acquired of the localized site of clinical concern an d recorded on PACS. Additional selected color Doppler and spectral images recorded. SITE OF CONCERN: scar. LIMITATIONS: None. FINDINGS: SKIN AND SUBCUTANEOUS TISSUES: Regional edema. Subcutaneous fluid measures up to 2.7 x 1. 4 x 0.9 cm underlying the scar in the right hemipelvis. Relatively non organized otherwise, but incr easing in size compared to prior. DEEP SOFT TISSUES/MUSCLES: No masses. No fluid collections. No edema. VASCULAR: No increased or decreased vascularity. No occlusions. OTHER: No other significant finding. IMPRESSION: Edema and fluid in the region of interest. This looks progressive compared to 01/08/2018 , worrisome for infection with abscess formation. TECHNICAL DOCUMENTATION: JOB ID: [id number] [employer]- All Rights Reserved Reading location - IP/workstation name: [email or web address]
[2018-01-17] MEDS ORDERED: FENTANYL CITRATE INJ/PF 100 MCG/2 ML AMPUL IV ONE (20:00)
[2018-01-17] MEDS ORDERED: NORMAL SALINE 1000 ML 1,000 ML IV ONE (20:00)
--- NOTE | 2018-01-17 20:25 | ER Document Report ---
ED GI/ - General Chief Complaint: Post Surgical Pain Stated Complaint: SURGICAL SITE ISSUE Time Seen by Provider: 01/17/18 18:51 Mode of Arrival: Ambulatory Information source: Patient Notes: Patient is status post on 12/03/2017. Patient had the performed as she had a herpes outbreak at the time. Patient states that since the surgery she has had persistent lower pelvic pain along the incision. Patient denies any fever. Patient was evaluated for this problem on 12/08/2017 and then followed up with her OB on 12/11/2017. On that visit patient was prescribed doxycycline and she has been taking this for the past 6 days. Patient reports increased pain and swelling to the lower pelvic area over the past 2-3 days. Last bowel movement was today and was normal. Patient denies any urinary symptoms nausea vomiting or back pain. TRAVEL OUTSIDE OF THE [place] IN LAST 30 DAYS: No - HPI Patient complains to provider of: Pelvic pain. No: , Vomiting Onset: Other Timing/Duration: Persistent, Worse Quality of pain: Achy, Sharp Pain Level: 4 Location: Pelvis Vaginal bleeding (Compared to normal period): None Menstrual period history: denies: Associated symptoms: denies: Dysuria, Fever, Nausea, Urinary hesitancy, Urinary frequency, Urinary retention, Vomiting Exacerbated by: Movement Relieved by: Denies Similar symptoms previously: Yes Recently seen / treated by doctor: Yes - Related Data Allergies/Adverse Reactions: amoxicillin [Amoxicillin] Allergy (Verified 11/19/17 23:59) midazolam HCl [From Versed] Allergy (Verified 11/19/17 23:59) Past Medical History - General Information source: Patient - Social History Smoking Status: Current Every Day Smoker Frequency of alcohol use: None Drug Abuse: None Occupation: None Lives with: Family Family History: Arthritis, DM, Hyperlipidemia Patient has suicidal ideation: No Patient has homicidal ideation: No - Past Medical History Cardiac Medical History: Denies: Hx Coronary Artery Disease, Hx Heart Attack, Hx Hypertension, Hx Pulmonary Embolism, Hx Heart Murmur Pulmonary Medical History: Reports: Hx Asthma, Hx Pneumonia - 07/31 - CXR Denies: Hx Bronchitis, Hx COPD, Hx Sleep Apnea, Hx Tuberculosis Neurological Medical History: Reports: Hx Seizures - 03/01 - topamax . Denies: Hx Cerebrovascular Accident Endocrine Medical History: Denies: Hx Hyperthyroidism, Hx Hypothyroidism Renal/ Medical History: Denies: Hx Peritoneal Dialysis GI Medical History: Reports: Hx Gastroesophageal Reflux Disease, Hx Hiatal Hernia Musculoskeletal Medical History: Denies Hx Arthritis, Denies Hx Fibromyalgia, Reports Hx Musculoskeletal Trauma Psychiatric Medical History: Reports: Hx Anxiety - panic attacks, Hx Bipolar Disorder, Hx Depression, Hx Post Traumatic Stress Disorder Traumatic Medical History: Denies: Hx Fractures Infectious Medical History: Denies: Hx HIV Past Surgical History: Reports: Hx Adenoidectomy, Hx Section - 12/03/17 , Hx Cholecystectomy, Hx Tonsillectomy - and adenoids. Denies: Hx Hysterectomy - Immunizations Hx Diphtheria, Pertussis, Tetanus Vaccination: Yes Review of Systems - Review of Systems Constitutional: No symptoms reported. denies: Fever, Recent illness EENT: No symptoms reported Cardiovascular: No symptoms reported. denies: Chest pain Respiratory: No symptoms reported. denies: Cough Gastrointestinal: Abdominal pain. denies: Nausea, Vomiting, Constipation Genitourinary: No symptoms reported. denies: Dysuria, Flank pain Female Genitourinary: No symptoms reported. denies: Vaginal bleeding Musculoskeletal: No symptoms reported. denies: Back pain Skin: No symptoms reported Hematologic/Lymphatic: No symptoms reported Neurological/Psychological: No symptoms reported Physical Exam - Vital signs Vitals: Temp Pulse Resp BP Pulse Ox 98.3 F 99 14 106/70 100 01/17/18 17:56 01/17/18 17:56 01/17/18 17:56 01/17/18 17:56 01/17/18 17:56 - General General appearance: Alert, Anxious In distress: None - HEENT Head: Normocephalic, Atraumatic Eyes: Normal Nasal: Normal Mouth/Lips: Caries Mucous membranes: Normal Neck: Normal, Supple. No: Lymphadenopathy - Respiratory Respiratory status: No respiratory distress Chest status: Nontender Breath sounds: Normal. No: Rales, Rhonchi, Stridor, Wheezing Chest palpation: Normal - Cardiovascular Rhythm: Regular Heart sounds: S1 appreciated, S2 appreciated Murmur: No - Abdominal Inspection: Normal Distension: No distension Bowel sounds: Normal Tenderness: Tender - Lower pelvic tenderness along incision worse to right lateral side, Guarding Organomegaly: No organomegaly - Back Back: Normal, Nontender. No: CVA tenderness - Extremities General upper extremity: Normal inspection, Normal ROM General lower extremity: Normal inspection, Normal ROM - Neurological Neuro grossly intact: Yes Cognition: Normal Jeannie Coma Scale Eye Opening: Spontaneous [place] Coma Scale Verbal: Oriented [place] Coma Scale Motor: Obeys Commands [place] Coma Scale Total: 15 - Psychological Associated symptoms: Normal affect, Normal mood - Skin Skin Temperature: Warm Skin Moisture: Dry Skin Color: Normal Course - Re-evaluation Re-evalutation: 01/17/18 20:[address] Salinas regarding patient presentation, advises getting CT of the pelvis to evaluate for abscess formation. States that he may come by and evaluate patient in room. 01/18/18 00:02 Dr Salinas to bedside for exam, advises waiting for ct scan report results. 01/18/18 01:24 CT scan report reviewed, discussed results with Dr. Salinas. Radiologist did not make comment about concern about possible developing abscess that was noted on ultrasound. Called after our radiology services to see if radiologist could look at the ultrasound report from earlier today and correlate that with the CT scan report performed this evening. Radiology after our services states that they will put a request in for an addendum and that provider should just check back for changes in the report. 01/18/18 01:54 Consulted with radiologist, Dr Moon, who states that there is no concern for any fluid collection or abscess that was noted on the ultrasound. States that the uterus was enlarged, although Dr. Salinas [employer] states that this is a normal finding status post delivery and so recent. Again consulted with Dr. Salinas regarding conversation with radiologist. Recommends having patient go home with something for pain relief and having her follow-up in the office for recheck. - Vital Signs Vital signs: Temp Pulse Resp BP Pulse Ox 97.8 F 70 14 104/68 99 01/18/18 01:32 01/18/18 01:32 01/18/18 01:32 01/18/18 01:32 01/18/18 01:32 - Laboratory Result Diagrams: 01/17/18 21:05 01/17/18 21:05 Laboratory results interpreted by me: 01/17/18 01/17/18 21:05 21:05 RDW 16.5 H Potassium 3.4 L Chloride 111 H Creatinine 0.46 L Labs- Entire Visit 01/17/18 01/17/18 01/17/18 20:20 20:20 21:05 WBC 7.1 RBC 4.38 Hgb 12.2 Hct 37.3 MCV 85 MCH 27.9 MCHC 32.8 RDW 16.5 H Plt Count 251 Seg Neutrophils % 46.2 Lymphocytes % 43.5 Monocytes % 7.0 Eosinophils % 2.7 Basophils % 0.6 Absolute Neutrophils 3.3 Absolute Lymphocytes 3.1 Absolute Monocytes 0.5 Absolute Eosinophils 0.2 Absolute Basophils 0.0 Sodium Cancelled Potassium Cancelled Chloride Cancelled Carbon Dioxide Cancelled Anion Gap Cancelled BUN Cancelled Creatinine Cancelled Est GFR ( Amer) Cancelled Est GFR (Non-Af Amer) Cancelled Glucose Cancelled Calcium Cancelled Serum HCG, Qual NEGATIVE 01/17/18 21:05 WBC RBC Hgb Hct MCV MCH MCHC RDW Plt Count Seg Neutrophils % Lymphocytes % Monocytes % Eosinophils % Basophils % Absolute Neutrophils Absolute Lymphocytes Absolute Monocytes Absolute Eosinophils Absolute Basophils Sodium 143.9 Potassium 3.4 L Chloride 111 H Carbon Dioxide 23 Anion Gap 10 BUN 7 Creatinine 0.46 L Est GFR ( Amer) > 60 Est GFR (Non-Af Amer) > 60 Glucose 78 Calcium 9.6 Serum HCG, Qual - Diagnostic Test Radiology reviewed: Reports reviewed Discharge - Discharge Clinical Impression: Pelvic pain, Hx of section, Hypokalemia Condition: Stable Disposition: HOME, SELF-CARE Instructions: Abdominal Pain ([facility]), Hypokalemia ([facility]), Oral Narcotic Medication ([facility]) Additional Instructions: Return immediately for any new or worsening symptoms Followup with your primary care provider, call tomorrow to make a followup appointment Prescriptions: Oxycodone HCl/Acetaminophen [Percocet 5-325 mg Tablet] 1 tab PO ASDIR PRN #15 tablet PRN Reason: Referrals: [facility] [Provider Group] - 01/19/18
[2018-01-17] MEDS ORDERED: MORPHINE SULFATE 10 MG/ML INJ IV ONE (21:32)
[2018-01-17 21:34] LABS: ANION GAP 10 (5-19); BLOOD UREA NITROGEN 7 mg/dL (7-20); CALCIUM 9.6 mg/dL (8.4-10.2); CARBON DIOXIDE 23 mmol/L (22-30); CHLORIDE 111 mmol/L (98-107); GLUCOSE 78 mg/dL (75-110); POTASSIUM 3.4 mmol/L (3.6-5.0); SODIUM 143.9 mmol/L (137-145)
[2018-01-17 22:29] LABS: ABSOLUTE EOSINOPHILS # (AUTO) 0.2 10^3/uL (0.0-0.6); ABSOLUTE LYMPHOCYTES (AUTO) 3.1 10^3/uL (0.5-4.7); ABSOLUTE MONOCYTES (AUTO) 0.5 10^3/uL (0.1-1.4); ABSOLUTE NEUT (AUTO) 3.3 10^3/uL (1.7-8.2); BASOPHILS % (AUTO) 0.6 % (0-2); EOSINOPHILS % (AUTO) 2.7 % (0-6); HEMATOCRIT 37.3 % (36.0-47.0); HEMOGLOBIN 12.2 g/dL (12.0-15.5); LYMPHOCYTES % (AUTO) 43.5 % (13-45); MEAN CORPUSCULAR HEMOGLOBIN 27.9 pg (27.0-33.4); MEAN CORPUSCULAR HGB CONC 32.8 g/dL (32.0-36.0); MEAN CORPUSCULAR VOLUME 85 fl (80-97); PLATELET COUNT 251 10^3/uL (150-450); RED BLOOD COUNT 4.38 10^6/uL (3.72-5.28); RED CELL DISTRIBUTION WIDTH 16.5 % (11.5-14.0); SEGMENTED NEUTROPHILS % (AUTO) 46.2 % (42-78); TOTAL CELLS COUNTED % (AUTO) 100 %; WHITE BLOOD COUNT 7.1 10^3/uL (4.0-10.5)
[2018-01-17] MEDS ORDERED: POTASSIUM CHLORIDE 10 MEQ CAPSULE.ER PO ONE (23:02)
--- NOTE | 2018-01-18 01:07 | RADIOLOGY REPORT (SQ) ---
CT ABDOMEN PELVIS WITH IV CONTRAST HISTORY: Pelvic pain status post recent . COMPARISON: None. TECHNIQUE: CT scan of the abdomen and pelvis. This exam was performed according to our departmental dose-optimization program, which includes automated exposure control, adjustment of the mA and/or kV according to patient size and/or use of iterative reconstruction technique. FINDINGS: Lung bases are clear. No pleural or pericardial effusions. Liver, spleen, pancreas, and adrenal glands are unremarkable. Cholecystectomy clips are present. The kidneys are normal without hydronephrosis. No bowel obstruction. Appendix is normal. Uterus is enlarged with mild wall edema. The endometrial canal is dilated measuring 4 cm. Bilateral ovarian cysts are present. Post surgical changes along the anterior pelvic wall from reported . The aorta is normal caliber without dissection or aneurysm. No abdominal wall hernia is seen. The osseous structures are intact. IMPRESSION: 1. Enlarged uterus with mild wall edema along with a dilated endometrial canal. Correlate with pelvic ultrasound. 2.Small benign appearing ovarian cysts No follow-up imaging is recommended. Reference: J Am Huong Radiol 2013;10:675-681
[2018-01-18 01:33] VITALS: BP 104/68
[2018-01-18] MEDS ORDERED: POTASSIUM CHLORIDE 10 MEQ CAPSULE.ER PO ONE (01:58)
[2018-01-18] MEDS ORDERED: OXYCODONE-ACETAMINOPHEN 5-325 MG TABLET PO ONE (01:59)
== END 2018-01-18 02:32 | disposition home or self-care (01) ==
LOC: ER 17:52
DX: O90.89 Other complications of the puerperium, not elsewhere classified (principal); R10.2 Pelvic and perineal pain; O99.285 Endocrine, nutritional and metabolic diseases complicating the puerperium; E87.6 Hypokalemia; O99.335 Smoking (tobacco) complicating the puerperium; O99.53 Diseases of the respiratory system complicating the puerperium; J45.909 Unspecified asthma, uncomplicated; Z98.890 Other specified postprocedural states; Z88.0 Allergy status to penicillin; O99.63 Diseases of the digestive system complicating the puerperium
CPT/HCPCS: 99284; 96361; 96374; 96375; 36415; 84703; 85025; 80048; 76705; 74177; J3010; J2270; J7030